=== PATIENT | male | born 1945 | race Caucasian/White ===

== ENCOUNTER 2020-09-17 13:04 | Emergency (ER) | payer MEDICARE, SELFPAY ==
--- NOTE | ~2020-09-17 | XR_ITS ---
EXAMINATION: XR LUMBOSACRAL SPINE CLINICAL INFORMATION: Severe left low back pain. History of multiple surgeries. COMPARISON: MRI of September 20, 2016 TECHNIQUE: Three views of the lumbosacral spine. FINDINGS: There are 5 nonrib-bearing lumbar vertebra. There is scoliosis of the lumbar spine convex left superiorly and convex right inferiorly. There is a stable superior endplate compression fracture of T12. No acute fractures identified. Patient is status post previous surgery at the L4-L5 and L5-S1 levels. There is loss of the L4-L5 and L5-S1 disc spaces with marginal spurring and sclerosis. There is some facet arthropathy on the right at the L5-S1 level. Sacroiliac joints appear unremarkable. There appear to be left-sided hemilaminectomies at L4 and L5. There are prominent vascular calcifications seen. No significant spondylolisthesis. XR/XR lumbar spine 2-3V IMPRESSION: Degenerative change of the lumbar spine most significant at the L4-L5 and L5-S1 levels as described. Stable chronic superior endplate compression fracture of T12.
[2020-09-17 13:17] VITALS: BP 132/58; PULSE 81; RESP 18; TEMP 36.7; O2SAT 98; BMI 22.6
--- NOTE | 2020-09-17 15:18 | ED.BACK ---
HPI - Back Pain/Injury General Chief Complaint: Back Pain/Injury Stated Complaint: Back pain Time Seen by Provider: 09/17/20 14:25 Source: patient Mode of arrival: ambulatory Limitations: no limitations History of Present Illness HPI Narrative: 75 y/o male with history of chronic low back pain s/p multiple back surgeries in the past presents to the ED with 1 week of worsening left sided low back pain. He denies trauma or injury. Today when he was getting out of the car his left low back locked up and tightened and he was unable to stand completely up. He took Flexeril and Aleve which usually help his back pain but did not help today. He denies urinary symptoms. He denies numbness, tingling, weakness. No incontinence. MD elicited complaint: back pain and back injury Pertinent past history: prior back pain Onset (ago): week(s) (1) Related Data Previous Rx's Medication Instructions Recorded cyclobenzaprine 10 mg PO TID PRN #10 tab 09/17/20 hydromorphone [Dilaudid] 1 mg PO Q6H PRN #5 tab 09/17/20 ibuprofen 600 mg PO Q8H PRN #20 tab 09/17/20 lidocaine [Lidoderm] 1 patch TOPICAL DAILY #15 ea 09/17/20 ondansetron 4 mg PO Q8H PRN #10 tab 09/17/20 Allergies Allergy/AdvReac Type Severity Reaction Status Date / Time acetaminophen [Percocet] AdvReac Intermediate Vomiting Verified 09/17/20 13:29 codeine AdvReac Intermediate Vomiting Verified 09/17/20 13:29 fentanyl [FENTANYL] AdvReac Intermediate Vomiting Verified 09/17/20 13:29 hydrocodone [Vicodin] AdvReac Intermediate Vomiting Verified 09/17/20 13:29 meperidine [Demerol] AdvReac Intermediate Vomiting Verified 09/17/20 13:29 Opioids-Meperidine and AdvReac Intermediate VOMITING Verified 09/17/20 13:29 Related [OPIOIDS-MEPERIDINE & RELATED] oxycodone AdvReac Intermediate Vomiting Verified 09/17/20 13:29 propoxyphene [From DARVON] AdvReac Intermediate NAUSEA & Verified 09/17/20 13:29 VOMITING tramadol [TRAMADOL] AdvReac Intermediate NAUSEA & Verified 09/17/20 13:29 VOMITING Darvon Allergy Intermediate Vomiting Uncoded 09/17/20 13:29 Darvocet-N 50 AdvReac Intermediate Vomiting Uncoded 09/17/20 13:29 Review of Systems Review of Systems: Constitutional: No Fever, No Chills Cardiovascular: No Chest Pain, No SOB Respiratory: No Cough, No Sputum Gastrointestinal: No Nausea, No Vomiting, No Diarrhea, No abdominal Pain Genitourinary: No Dysuria, No Urinary Frequency, No Hematuria Musculoskeletal: + joint pain, + Myalgias Skin: No Skin Lesions, No rash Neuro: No Weakness, No Numbness PMFSH Past Medical History Medical History Cataract Chronic back pain Deviated septum Diabetes High blood pressure Kidney stones Vitreomacular adhesion of left eye Surgical History (Updated 09/17/20 @ 13:24 by Maria A Mojica RN) H/O rotator cuff surgery Hx of vitrectomy Previous back surgery S/P hernia surgery Social History Social History Advance Directives: No Advance Directives Information Provided: No Physical Exam Vital Signs: Vital Signs: Last Vital Signs Temp 98.1 F 09/17/20 13:17 Pulse 59 09/17/20 16:53 Resp 16 09/17/20 16:53 BP 116/63 09/17/20 16:53 Pulse Ox 97 09/17/20 16:53 Body Mass Index 22.6 Appearance: Alert. Oriented X3. No acute distress. Appears younger than stated age. HEENT: normal inspection CVS: Normal heart rate and rhythm. Pulses normal. Respiratory: No respiratory distress. Skin: Skin warm and dry. Normal skin color. Normal skin turgor. No rashes. Back: normal inspection, tenderness to lower lumbar area on the left and SI joint. No spinal tenderness. Limited flexion due to pain Extremities: atraumatic, no edema. Neuro: Oriented X 3. No motor deficit. No sensory deficit. Ambulates with steady gait. Slow to go from laying to sitting to standing. Course Course Course Narrative: 75 y/o male presenting with acute on chronic low back pain. No definite trauma but occurred when getting out of car today. Consistent with muscualr pain or strain. No red flag symptoms of LBP. Possible slipped disc but no neurological symptoms at this time to warrant emergent MRI/CT scan. Will get XR, medicate and reassess. Multiple allergies to opiates in the past - he has tolerated low dose PO dilaudid with antiemetic in the past. Reevaluation(s) Reevaluation #1: XR showing no acute injuries - degenerative changes and old compression fracture. Results discussed as well as management. He has an appointment with his PCP in 2 weeks. Will give short course of PO dilaudid, muscle relaxer and NSAID. He agrees to come back to the ER if no improvement in pain or if new concerning symptoms develop. Stable for d/c. MDM - Back Pain/Injury Differential Diagnosis Differential diagnosis: Likely lumbar radiculopathy, sciatica, strain of lumbar region, renal colic, pyelonephritis and thoracic back pain Lab Data Labs: Lab Results 09/17/20 Range/Units 15:32 Urine Color YELLOW Urine Appearance CLEAR Urine pH 6.0 (5.0-8.0) Ur Specific [place] 1.025 (1.005-1.025) Urine Protein NEG (NEG-TRACE) MG/DL Urine Glucose (UA) 250 H (NEG) MG/DL Urine Ketones NEG (NEG) MG/DL Urine Blood NEG (NEG) Urine Nitrite NEG (NEG) Ur Leukocyte Esterase NEG (NEG) Critical Care Time Critical Care Time Critical Care Time: No Discharge Plan Discharge Clinical Impression: Strain of lumbar region Qualifiers: Encounter type: initial encounter Qualified Code(s): S39.012A - Strain of muscle, fascia and tendon of lower back, initial encounter Patient Disposition: Home, Self-Care Instructions: Low Back Strain (ED), Lower Back Exercises (ED) Additional Instructions: Your x-ray today degenerative changes in your spine, no acute injuries. No bending, lifting or twisting. Use ice several times per day for 20 minutes at a time for the next 48 hours and then change to heat. Do your best to not stay in 1 position for too long. Take medications as prescribed to help with pain and discomfort. Do not drive after taking Dilaudid or Flexeril, they can make you sleepy. Follow up with your Primary Care Doctor this week. If your pain worsens, if you develop new numbness, tingling, weakness, loss of function or incontinence call 911 or come back to the ER right away for evaluation. Prescriptions: New ondansetron 4 mg tablet,disintegrating 4 mg PO Q8H PRN (Reason: nausea and vomiting) Qty: 10 RF: 0 cyclobenzaprine 10 mg tablet 10 mg PO TID PRN (Reason: muscle spasm) Qty: 10 RF: 0 ibuprofen 600 mg tablet 600 mg PO Q8H PRN (Reason: pain) Qty: 20 RF: 0 lidocaine [Lidoderm] 5 % adhesive patch,medicated 1 patch topical DAILY Qty: 15 RF: 0 hydromorphone [Dilaudid] 2 mg tablet 1 mg PO Q6H PRN (Reason: pain) Qty: 5 RF: 0 Interventions: ED Discharge Assessment Last Done: 09/17/20 19:09 Discharge Date/Time: 09/17/20 19:12
[2020-09-17 16:02] LABS: Glucose Urine UA 250 MG/DL (NEG); Leukocyte Esterase Urine NEG (NEG); Nitrite Urine NEG (NEG); Specific Gravity - Urine 1.025 (1.005-1.025); Urine Blood NEG (NEG); Urine Ketones NEG (NEG); Urine Protein NEG (NEG-TRACE)
[2020-09-17] MEDS: Ketorolac Tromethamine 30 MG/ML VIAL IM (16:03)
[2020-09-17] MEDS: Lidocaine 4 % Patch ADH..PATCH 2 PATCH TRANSDERMA (16:03)
[2020-09-17 16:04] LABS: Appearance Urine CLEAR; Color Urine YELLOW
[2020-09-17] MEDS: TiZANidine HCL 4 MG TABLET 2 MG PO (16:04)
[2020-09-17 16:42] VITALS: RESP 16
[2020-09-17] MEDS: HYDROmorphone HCl 2 MG TABLET 1 MG PO (16:51)
[2020-09-17 16:53] VITALS: BP 116/63; PULSE 59; RESP 16; O2SAT 97
== END 2020-09-17 19:12 | disposition home or self-care (01) ==
PROVIDERS: Physician Assistant; Emergency Provider Emergency Medicine; PCP Internal Medicine
DX: S39.012A Strain of muscle, fascia and tendon of lower back, initial encounter (principal); X50.1XXA Overexertion from prolonged static or awkward postures, initial encounter; G89.29 Other chronic pain; E11.9 Type 2 diabetes mellitus without complications; Y93.89 Activity, other specified; Y92.810 Car as the place of occurrence of the external cause; Y99.8 Other external cause status; Z87.442 Personal history of urinary calculi
CPT/HCPCS: 72100; 81003; 96372; 99284; J1885

== ENCOUNTER 2020-09-18 23:27 | Inpatient (IN) | payer MEDICARE, SELFPAY ==
--- NOTE | ~2020-09-18 | CT_ITS ---
EXAMINATION: CT ABDOMEN AND PELVIS WITHOUT CONTRAST CLINICAL INFORMATION: Left flank pain. Left lower quadrant pain. COMPARISON: 08/20/2018 TECHNIQUE: Multidetector volumetric imaging was performed from the superior aspect of the liver through the pubic symphysis. Sagittal and coronal reformatted images were obtained on the technologist's workstation. This CT examination was performed using dose optimization techniques as appropriate, variously including the following: *Automated exposure control *Adjustment of mA and/or kV according to patient size (this includes techniques or standardized protocols for targeted exams where dose is matched to indication/reason for exam; i.e. extremities or head) *Use of iterative reconstruction technique DLP: 527 mGy-cm FINDINGS: LUNG BASES: Right basilar atelectasis/scarring. The visualized cardiac structures show coronary artery calcification. LIVER, GALLBLADDER, AND BILIARY TREE: The liver is normal in size, shape, and attenuation. 1.7 cm cyst at the dome of the right lobe of the liver. No biliary ductal dilatation is present. The gallbladder is unremarkable with no evidence of radiopaque gallstones, gallbladder wall thickening, or obvious pericholecystic inflammatory changes. PANCREAS: Mild atrophy of the pancreatic parenchyma. SPLEEN: Unremarkable. ADRENAL GLANDS: Unremarkable. KIDNEYS AND URETERS: The kidneys are normal in size, shape, and attenuation. No hydronephrosis, hydroureter, or calculi seen. No perinephric stranding. BLADDER: Unremarkable. GASTROINTESTINAL TRACT: The stomach is unremarkable. Normal caliber small bowel. No obstruction. There is wall thickening involving the descending colon and sigmoid colon with adjacent inflammation, consistent with colitis. Diffuse diverticulosis. No diverticulitis. No free air. ABDOMINAL WALL: No significant hernia is appreciated. LYMPH NODES: Normal. VASCULAR: Normal caliber aorta with moderate atherosclerotic calcification. PELVIC VISCERA: Enlarged prostate measuring 5.6 cm transverse. OSSEOUS STRUCTURES: No acute or suspicious osseous abnormality. Degenerative changes throughout the spine. Scoliotic curvature. CT/CT abdomen pelvis wo con IMPRESSION: Colitis of the left hemicolon. This could be infectious, inflammatory, or ischemic. Prostatomegaly.
--- NOTE | ~2020-09-18 | XR_ITS ---
EXAMINATION: XR CHEST CLINICAL INFORMATION: Cough COMPARISON: 10/20/2018 TECHNIQUE: Frontal view of the chest was obtained. FINDINGS: Chronic elevation of the right hemidiaphragm. Gas-filled stomach under the left hemidiaphragm. Right humeral head surgical anchors. Tracheal opacities at the left base. No pleural effusion or pneumothorax. The cardiomediastinal silhouette is unchanged, with a calcified aorta. Scoliotic curvature of the spine with degenerative changes. XR/XR chest 1V IMPRESSION: Streaky left basilar opacities favor atelectasis.
[2020-09-18 23:36] VITALS: BP 114/80; BP 140/70; PULSE 117; PULSE 83; RESP 16; TEMP 37; O2SAT 97; O2SAT 98; BMI 22.6
--- NOTE | 2020-09-18 23:44 | ECG_ITS ---
Test Reason : NAUSEA Blood Pressure : / mmHG Vent. Rate : 081 BPM Atrial Rate : 081 BPM P-R Int : 182 ms QRS Dur : 094 ms QT Int : 368 ms P-R-T Axes : 069 -82 070 degrees QTc Int : 427 ms Normal sinus rhythm Left axis deviation Pulmonary disease pattern Incomplete right bundle branch block Abnormal ECG When compared with ECG of 20-OCT-2018 07:58, Premature atrial complexes are no longer Present Referred By: Tova Villela Electronically Signed By:Mariano Lucero
--- NOTE | 2020-09-19 00:10 | ED.GENADULT ---
HPI - General Adult General Chief complaint: General Medical Stated complaint: weakness Time Seen by Provider: 09/18/20 23:44 History of Present Illness HPI narrative: This is a 75-year-old male with history of diabetes who is brought in by ambulance for worsening weakness and left flank pain with associated chills that worsened after being evaluated on 09/17 for strain of lumbar region. Patient states that that time he was started on Dilaudid which initially helped, but now he has developed nausea, vomiting, diarrhea. Although he denies any urinary symptoms and when question regarding his prior kidney stones appears to be uncertain that this is what is causing his recurrent symptoms at this time. Patient currently complaining of polydipsia as well as polyuria. Related Data Previous Rx's Medication Instructions Recorded cyclobenzaprine 10 mg PO TID PRN #10 tab 09/17/20 hydromorphone [Dilaudid] 1 mg PO Q6H PRN #5 tab 09/17/20 ibuprofen 600 mg PO Q8H PRN #20 tab 09/17/20 lidocaine [Lidoderm] 1 patch TOPICAL DAILY #15 ea 09/17/20 ondansetron 4 mg PO Q8H PRN #10 tab 09/17/20 Allergies Allergy/AdvReac Type Severity Reaction Status Date / Time acetaminophen [Percocet] AdvReac Intermediate Vomiting Verified 09/17/20 13:29 codeine AdvReac Intermediate Vomiting Verified 09/17/20 13:29 fentanyl [FENTANYL] AdvReac Intermediate Vomiting Verified 09/17/20 13:29 hydrocodone [Vicodin] AdvReac Intermediate Vomiting Verified 09/17/20 13:29 meperidine [Demerol] AdvReac Intermediate Vomiting Verified 09/17/20 13:29 Opioids-Meperidine and AdvReac Intermediate VOMITING Verified 09/17/20 13:29 Related [OPIOIDS-MEPERIDINE & RELATED] oxycodone AdvReac Intermediate Vomiting Verified 09/17/20 13:29 propoxyphene [From DARVON] AdvReac Intermediate NAUSEA & Verified 09/17/20 13:29 VOMITING tramadol [TRAMADOL] AdvReac Intermediate NAUSEA & Verified 09/17/20 13:29 VOMITING Darvon Allergy Intermediate Vomiting Uncoded 09/17/20 13:29 Darvocet-N 50 AdvReac Intermediate Vomiting Uncoded 04/21/21 13:29 Review of Systems Review of Systems: Pertinent positives and negatives as stated in HPI 10 point review of systems is otherwise negative. [facility] Past Medical History Source: nursing notes reviewed Medical History Cataract Chronic back pain Deviated septum Diabetes High blood pressure Kidney stones Vitreomacular adhesion of left eye Surgical History H/O rotator cuff surgery Hx of vitrectomy Previous back surgery S/P hernia surgery Social History Social History Advance Directives: No Physical Exam Vital Signs: Vital Signs: Last Vital Signs Temp 98.2 F 09/19/20 04:49 Pulse 89 09/19/20 04:49 Resp 15 09/19/20 04:49 BP 110/52 L 09/19/20 04:49 Pulse Ox 98 09/19/20 04:49 Body Mass Index 22.6 VITAL SIGNS: Reviewed. GENERAL: Well developed, well nourished, in no acute distress. HEAD: Normocephalic/atraumatic, EYES: PERRLA, EOMI OROPHARYNX: no oral lesions noted, posterior pharynx clear NECK: Supple, no adenopathy LUNGS: Normal breath sounds. No adventitious sounds or accessory muscle use. SpO2<98> CARDIOVASCULAR: Regular rate and rhythm without noted murmurs ABDOMEN: Soft, significant tenderness in the left lower quadrant, non-distended with bowel sounds, symmetric femoral pulses palpated, no pulsatile abdominal mass noted SKIN: Inspection of the skin reveals no rashes NEUROLOGIC: Alert and oriented x 4. Strength and sensation decreased secondary to known diabetic neuropathy but otherwise grossly intact x 4. Course Course Course Narrative: 75-year-old male with history and clinical presentation suggestive of renal colic, diverticulitis, possible DKA and doubt pneumonia or aortic pathology. On review of all investigations there are no acute findings other than a new FRANCOIS that is reflective of patient's nausea, vomiting, diarrhea and no evidence of DKA or HHS. CT scan is consistent with colitis and presumed to be infectious as there is no evidence to support ischemic at this point. Patient has had resolution of nausea and vomiting and has been able to tolerate oral intake. In addition, patient has had no further episodes of diarrhea. Signed out to Dr Ventura (f/u BMP, stool sample). Medical Decision Making Lab Data Result diagrams: 09/19/20 00:42 09/19/20 00:42 Labs: Lab Results 09/19/20 09/19/20 09/19/20 Range/Units 00:42 00:42 00:42 WBC 10.6 (4.8-10.8) X10*3/uL RBC 4.22 L (4.60-5.80) X10*6/uL Hgb 13.4 L (14.0-18.0) g/dl Hct 40.1 L (42-52) % MCV 95.0 (80-98) fL MCH 31.8 (27.0-33.0) pg MCHC 33.4 (31.0-36.0) g/dl RDW 13.0 (11.0-16.0) % Plt Count 215 (160-400) X10*3/uL MPV 11.3 (9.4-12.4) fL Immature Gran % (Auto) 0.2 (0.0-0.4) % Neut % (Auto) 86.1 H (45-73) % Lymph % (Auto) 7.7 L (20-40) % Nash % (Auto) 5.7 (2-11) % Eos % (Auto) 0.2 (0-4) % Baso % (Auto) 0.1 (0-2) % Lymph # (Auto) 0.8 L (1.2-4.9) X10*3/uL Nash # (Auto) 0.6 (0.1-1.2) X10*3/uL Eos # (Auto) 0.0 (0.0-0.4) X10*3/uL Baso # (Auto) 0.0 (0.0-0.2) X10*3/uL Abs Immat Gran (auto) 0.02 (0.00-0.03) X10*3/uL Absolute Neuts (auto) 9.1 H (2.0-8.3) X10*3/uL Absolute Nucleated RBC 0.000 (0.0-0.012) X10*3/uL Nucleated RBC % (auto) 0.0 (0.0-0.2) /100WBC PT 11.7 (10.8-13.0) SEC INR 1.0 (0.9-1.1) Sodium 140 (135-145) mmol/L Potassium 4.6 (3.3-5.1) mmol/L Chloride 102 (96-108) mmol/L Carbon Dioxide 22 (22-29) mmol/L Anion Gap 21 H (12-20) BUN 28 H (9-16) mg/dL Creatinine 1.75 H (0.5-1.4) mg/dL Estim Creat Clear Calc 36.3 Estimated GFR 38 POC Glucose (60-115) mg/dL Random Glucose 242 H (60-115) mg/dL Calcium 10.1 (8.4-10.2) mg/dL Total Bilirubin 0.8 (0.0-1.0) mg/dL AST 24 (5-37) U/L ALT 24 (0-40) U/L Alkaline Phosphatase 73 (39-117) U/L Total Protein 6.8 (6.5-8.0) g/dL Albumin 4.3 (3.5-5.0) g/dL Urine Color Urine Appearance Urine pH (5.0-8.0) Ur Specific [place] (1.005-1.025) Urine Protein (NEG-TRACE) MG/DL Urine Glucose (UA) (NEG) MG/DL Urine Ketones (NEG) MG/DL Urine Blood (NEG) Urine Nitrite (NEG) Ur Leukocyte Esterase (NEG) Acetone, Qual (Negative) 09/19/20 09/19/20 09/19/20 Range/Units 00:42 01:06 04:49 WBC (4.8-10.8) X10*3/uL RBC (4.60-5.80) X10*6/uL Hgb (14.0-18.0) g/dl Hct (42-52) % MCV (80-98) fL MCH (27.0-33.0) pg MCHC (31.0-36.0) g/dl RDW (11.0-16.0) % Plt Count (160-400) X10*3/uL MPV (9.4-12.4) fL Immature Gran % (Auto) (0.0-0.4) % Neut % (Auto) (45-73) % Lymph % (Auto) (20-40) % Nash % (Auto) (2-11) % Eos % (Auto) (0-4) % Baso % (Auto) (0-2) % Lymph # (Auto) (1.2-4.9) X10*3/uL Nash # (Auto) (0.1-1.2) X10*3/uL Eos # (Auto) (0.0-0.4) X10*3/uL Baso # (Auto) (0.0-0.2) X10*3/uL Abs Immat Gran (auto) (0.00-0.03) X10*3/uL Absolute Neuts (auto) (2.0-8.3) X10*3/uL Absolute Nucleated RBC (0.0-0.012) X10*3/uL Nucleated RBC % (auto) (0.0-0.2) /100WBC PT (10.8-13.0) SEC INR (0.9-1.1) Sodium (135-145) mmol/L Potassium (3.3-5.1) mmol/L Chloride (96-108) mmol/L Carbon Dioxide (22-29) mmol/L Anion Gap (12-20) BUN (9-16) mg/dL Creatinine (0.5-1.4) mg/dL Estim Creat Clear Calc Estimated GFR POC Glucose 234 H (60-115) mg/dL Random Glucose (60-115) mg/dL Calcium (8.4-10.2) mg/dL Total Bilirubin (0.0-1.0) mg/dL AST (5-37) U/L ALT (0-40) U/L Alkaline Phosphatase (39-117) U/L Total Protein (6.5-8.0) g/dL Albumin (3.5-5.0) g/dL Urine Color DARK YELLOW Urine Appearance CLEAR Urine pH 5.0 (5.0-8.0) Ur Specific [place] 1.025 (1.005-1.025) Urine Protein NEG (NEG-TRACE) MG/DL Urine Glucose (UA) 100 H (NEG) MG/DL Urine Ketones NEG (NEG) MG/DL Urine Blood NEG (NEG) Urine Nitrite NEG (NEG) Ur Leukocyte Esterase NEG (NEG) Acetone, Qual Negative (Negative) ECG Data Attestation: I personally reviewed and interpreted this ECG as follows: Prior ECG tracings: available for review (10/20/2018 no acute changes on comparison) Interpretation: Normal sinus rhythm, HR-81, incomplete right bundle branch block, no acute evidence ischemia, AK/QRS/QTC are within normal limits Discharge Plan Discharge Clinical Impression: Colitis Patient Disposition: Home, Self-Care Instructions: Colitis (ED) Additional Instructions: 1. Continue to drink plenty of water. 2. Prescriptions: No Action ondansetron 4 mg tablet,disintegrating 4 mg PO Q8H PRN (Reason: nausea and vomiting) Qty: 10 RF: 0 cyclobenzaprine 10 mg tablet 10 mg PO TID PRN (Reason: muscle spasm) Qty: 10 RF: 0 ibuprofen 600 mg tablet 600 mg PO Q8H PRN (Reason: pain) Qty: 20 RF: 0 lidocaine [Lidoderm] 5 % adhesive patch,medicated 1 patch topical DAILY Qty: 15 RF: 0 hydromorphone [Dilaudid] 2 mg tablet 1 mg PO Q6H PRN (Reason: pain) Qty: 5 RF: 0
--- NOTE | 2020-09-19 00:33 | PC.NURSE ---
IV inserted into right AC.
[2020-09-19] MEDS: ondansetron HCL 4 MG/2 ML VIAL IVPUSH ×2 (00:35→05:05)
[2020-09-19 00:47] LABS: MANUAL DIFF FLAG NO
[2020-09-19 01:01] LABS: Basophils Percent Auto 0.1 % (0-2); Eosinophils Percent Auto 0.2 % (0-4); Hematocrit 40.1 % (42-52); Hemoglobin 13.4 g/dl (14.0-18.0); Imm Gran Abs Auto 0.02 X10*3/uL (0.00-0.03); Imm Gran Pct Auto 0.2 % (0.0-0.4); Lymphocytes Absolute Auto 0.8 X10*3/uL (1.2-4.9); Lymphocytes Percent Auto 7.7 % (20-40); Mean Corpuscular HGB Conc 33.4 g/dl (31.0-36.0); Mean Corpuscular Hemoglobin 31.8 pg (27.0-33.0); Mean Platelet Volume 11.3 fL (9.4-12.4); Monocytes Absolute Auto 0.6 X10*3/uL (0.1-1.2); Monocytes Percent Auto 5.7 % (2-11); Neutrophils Absolute Auto 9.1 X10*3/uL (2.0-8.3); Neutrophils Percent Auto 86.1 % (45-73); Platelet Count 215 X10*3/uL (160-400); Red Blood Count 4.22 X10*6/uL (4.60-5.80); White Blood Count 10.6 X10*3/uL (4.8-10.8)
[2020-09-19 01:08] LABS: Prothrombin Time 11.7 SEC (10.8-13.0)
[2020-09-19 01:10] LABS: Glucose, Whole Blood 234 mg/dL (60-115)
[2020-09-19 01:15] LABS: Acetone, serum QL Negative (Negative)
--- NOTE | 2020-09-19 01:15 | PC.NURSE ---
PT had episode of explosive diarrhea in the bathroom. Provider is order stool sample culture to check for c. diff.
[2020-09-19 01:22] LABS: Alanine Aminotransferase 24 U/L (0-40); Alkaline Phosphatase 73 U/L (39-117); Anion Gap 21 (12-20); Aspartate Amino Transferase 24 U/L (5-37); Bilirubin Total 0.8 mg/dL (0.0-1.0); Blood Urea Nitrogen 28 mg/dL (9-16); Calcium 10.1 mg/dL (8.4-10.2); Carbon Dioxide 22 mmol/L (22-29); Chloride 102 mmol/L (96-108); Creatinine Clr Calc Pharmacy 36.3; Estimated Glomerular Filt Rate 38; Glucose Random 242 mg/dL (60-115); Potassium 4.6 mmol/L (3.3-5.1); Sodium 140 mmol/L (135-145); Total Protein 6.8 g/dL (6.5-8.0)
[2020-09-19 01:27] LABS: Albumin Level 4.3 g/dL (3.5-5.0)
[2020-09-19] MEDS: 0.9 % Sodium Chloride 1,000 ML 999 ML IV (02:01)
[2020-09-19 04:49] VITALS: BP 110/52; PULSE 89; RESP 15; TEMP 36.8; O2SAT 98
[2020-09-19 05:04] LABS: Glucose Urine UA 100 MG/DL (NEG); Leukocyte Esterase Urine NEG (NEG); Nitrite Urine NEG (NEG); Specific Gravity - Urine 1.025 (1.005-1.025); Urine Blood NEG (NEG); Urine Ketones NEG (NEG); Urine Protein NEG (NEG-TRACE)
[2020-09-19 05:07] LABS: Appearance Urine CLEAR; Color Urine DARK YELLOW
[2020-09-19 08:00] VITALS: PULSE 78; RESP 16; O2SAT 97
[2020-09-19 08:58] LABS: Lactic Acid 2.6 mmol/L (0.5-2.0)
[2020-09-19 09:11] LABS: Alanine Aminotransferase 29 U/L (0-40); Alkaline Phosphatase 64 U/L (39-117); Anion Gap 15 (12-20); Aspartate Amino Transferase 28 U/L (5-37); Bilirubin Total 0.6 mg/dL (0.0-1.0); Blood Urea Nitrogen 30 mg/dL (9-16); Calcium 9.6 mg/dL (8.4-10.2); Carbon Dioxide 23 mmol/L (22-29); Chloride 105 mmol/L (96-108); Estimated Glomerular Filt Rate 43; Glucose Random 231 mg/dL (60-115); Potassium 4.7 mmol/L (3.3-5.1); Sodium 138 mmol/L (135-145); Total Protein 6.2 g/dL (6.5-8.0)
[2020-09-19 10:31] LABS: Reflex Lactate? Lactic Acid Added
[2020-09-19] MEDS: 0.9 % Sodium Chloride 500 ML IV (10:45)
[2020-09-19] MEDS: levoFLOXacin/D5W 500 MG/100 ML PIGGYBACK 100 MG IV (10:48)
[2020-09-19 11:21] VITALS: BP 118/59; PULSE 83; RESP 16; TEMP 36.9; O2SAT 98
[2020-09-19 11:42] LABS: CDIFF Ag Negative (Negative); CDIFF Internal ctrl Dots and bkg OK (V); CDiff Toxin Negative (Negative)
[2020-09-19] MEDS: metroNIDAZOLE/NS 500 MG/100 ML PIGGYBACK 100 MG IV ×2 (11:45→17:55)
[2020-09-19 11:59] LABS: ~Lactic Acid-LAB USE ONLY 1.5 mmol/L (0.5-2.0)
[2020-09-19 12:59] LABS: Glucose, Whole Blood 121 mg/dL (60-115)
--- NOTE | 2020-09-19 15:49 | PM.IMHP ---
History of Present Illness Date of Service: 09/19/20 Chief Complaint: left sided abdominal pain, nausea, diarrhea This is a 75-year-old male with a past medical history as outlined below who presents to the hospital complaints of nausea and left-sided abdominal pain of one-day duration. Patient reports that over the last several days he has had some diarrhea and back pain. He reports that he was seen for back pain in the emergency room 2 days ago and was prescribed some muscle relaxers and narcotics. He reports that he has some intolerance to narcotics and started having subsequent vomiting with associated left-sided pain. He reports that his diarrhea has been going on for 3-4 days, nonbloody and he has been going about 4 to 5 times a day. Reports that the pain started several days after the diarrhea. He denies any fevers but does endorse some chills at home yesterday. Denies any recent antibiotic use. Denies eating outside the house. Review of Systems Review of Systems: General - denies fevers, +chills, denies weakness or fatigue HEENT -denies blurred vision, denies headache, denies sore throat Cardiovascular - denies chest pain or palpitations, denies edema Respiratory - denies shortness of breath, coughing, wheezing Gastrointestinal - left sided pain with nausea/vomiting - denies flank pain, denies dysuria, denies frequency or urgency Musculoskeletal - denies back pain, denies hip pain, denies knee pain, denies shoulder pain Neurological - denies any focal weakness or numbness Skin, denies any bruising or redness Psychiatric - denies any suicidal ideation, hallucinations, homicidal ideation Endocrinology - denies intolerance to hot / cold temperatures [facility] Medical History Cataract Chronic back pain Deviated septum Diabetes High blood pressure Kidney stones Vitreomacular adhesion of left eye Surgical History H/O rotator cuff surgery Hx of vitrectomy Previous back surgery S/P hernia surgery Social History Alcohol intake: unknown Smoking Status: Unknown if ever smoked Use of substances other than those prescribed or required for medical reasons: Unknown Advance Directives: No Meds Allergies Allergy/AdvReac Type Severity Reaction Status Date / Time acetaminophen [Percocet] AdvReac Intermediate Vomiting Verified 09/17/20 13:29 codeine AdvReac Intermediate Vomiting Verified 09/17/20 13:29 fentanyl [FENTANYL] AdvReac Intermediate Vomiting Verified 09/17/20 13:29 hydrocodone [Vicodin] AdvReac Intermediate Vomiting Verified 09/17/20 13:29 meperidine [Demerol] AdvReac Intermediate Vomiting Verified 09/17/20 13:29 Opioids-Meperidine and AdvReac Intermediate VOMITING Verified 09/17/20 13:29 Related [OPIOIDS-MEPERIDINE & RELATED] oxycodone AdvReac Intermediate Vomiting Verified 09/17/20 13:29 propoxyphene [From DARVON] AdvReac Intermediate NAUSEA & Verified 09/17/20 13:29 VOMITING tramadol [TRAMADOL] AdvReac Intermediate NAUSEA & Verified 09/17/20 13:29 VOMITING Darvon Allergy Intermediate Vomiting Uncoded 09/17/20 13:29 Darvocet-N 50 AdvReac Intermediate Vomiting Uncoded 09/17/20 13:29 Active Medications: Current Medications Generic Name Dose Route Start Last Admin Trade Name Freq PRN Reason Stop Dose Admin Pharmacy Consult 1 each 09/19/20 09:04 Consult Rx Perform Med Rec MISCELLANE ONCE PRN Consult order Home Medications Medication Instructions Recorded Confirmed Last Taken Type amlodipine 1 tab PO DAILY 09/19/20 09/19/20 09/18/20 History aspirin 81 mg PO DAILY 09/19/20 09/19/20 09/18/20 History lisinopril 1 tab PO DAILY 09/19/20 09/19/20 09/18/20 History metformin 1 tab PO BEDTIME 09/19/20 09/19/20 09/18/20 History resisehv-dds-NO-lycopen-lutein 1 tab PO DAILY 09/19/20 09/19/20 09/18/20 History [Centrum Silver Men] rosuvastatin 1 tab PO BEDTIME 09/19/20 09/19/20 09/18/20 History Physical Exam Vital Signs and Narrative: Vital Signs: Last Vital Signs Temp 98.5 F 09/19/20 11:21 Pulse 83 09/19/20 11:21 Resp 16 09/19/20 11:21 BP 118/59 L 09/19/20 11:21 Pulse Ox 98 09/19/20 11:21 Body Mass Index 22.6 Const: Other: Constitutional - Awake and Alert, No apparent distress Eyes - PERRLA, EOMI Cardiovascular - S1S2, RRR, No edema Respiratory - Normal lung expansion, Normal respiratory effort, No respiratory distress, CTA bilaterally Gastrointestinal - slightly distended L > R; tender on the left side without rebound or guarding - No CVA tenderness Extremities - no calf tenderness bilaterally, no swelling Musculoskeletal - Normal inspection, normal ROM Skin - Warm/Dry Neurological - Alert & oriented x3, No focal deficit Psychological - Appropriate affect Results Labs CBC and Chem 7: 09/19/20 00:42 09/19/20 08:26 Labs: Laboratory Results - last 24 hr 09/19/20 09/19/20 09/19/20 00:42 00:42 00:42 MCV 95.0 MCH 31.8 MCHC 33.4 RDW 13.0 Plt Count 215 MPV 11.3 Immature Gran % (Auto) 0.2 Neut % (Auto) 86.1 H Lymph % (Auto) 7.7 L [place] % (Auto) 5.7 Eos % (Auto) 0.2 Baso % (Auto) 0.1 Lymph # (Auto) 0.8 L [place] # (Auto) 0.6 Eos # (Auto) 0.0 Baso # (Auto) 0.0 Abs Immat Gran (auto) 0.02 Absolute Neuts (auto) 9.1 H Absolute Nucleated RBC 0.000 Nucleated RBC % (auto) 0.0 PT 11.7 INR 1.0 Anion Gap 21 H Estim Creat Clear Calc 36.3 Estimated GFR 38 POC Glucose Random Glucose 242 H Lactic Acid Lactic Acid Fup @ 2Hr Calcium 10.1 Total Bilirubin 0.8 AST 24 ALT 24 Alkaline Phosphatase 73 Total Protein 6.8 Albumin 4.3 Urine Color Urine Appearance Urine pH Ur Specific [place] Urine Protein Urine Glucose (UA) Urine Ketones Urine Blood Urine Nitrite Ur Leukocyte Esterase Acetone, Qual C. difficile Toxin A&B C. difficile Antigen C. difficile Interpret 09/19/20 09/19/20 09/19/20 00:42 01:06 04:49 MCV MCH MCHC RDW Plt Count MPV Immature Gran % (Auto) Neut % (Auto) Lymph % (Auto) [place] % (Auto) Eos % (Auto) Baso % (Auto) Lymph # (Auto) [place] # (Auto) Eos # (Auto) Baso # (Auto) Abs Immat Gran (auto) Absolute Neuts (auto) Absolute Nucleated RBC Nucleated RBC % (auto) PT INR Anion Gap Estim Creat Clear Calc Estimated GFR POC Glucose 234 H Random Glucose Lactic Acid Lactic Acid Fup @ 2Hr Calcium Total Bilirubin AST ALT Alkaline Phosphatase Total Protein Albumin Urine Color DARK YELLOW Urine Appearance CLEAR Urine pH 5.0 Ur Specific [place] 1.025 Urine Protein NEG Urine Glucose (UA) 100 H Urine Ketones NEG Urine Blood NEG Urine Nitrite NEG Ur Leukocyte Esterase NEG Acetone, Qual Negative C. difficile Toxin A&B C. difficile Antigen C. difficile Interpret 09/19/20 09/19/20 09/19/20 08:26 08:26 10:59 MCV MCH MCHC RDW Plt Count MPV Immature Gran % (Auto) Neut % (Auto) Lymph % (Auto) [place] % (Auto) Eos % (Auto) Baso % (Auto) Lymph # (Auto) [place] # (Auto) Eos # (Auto) Baso # (Auto) Abs Immat Gran (auto) Absolute Neuts (auto) Absolute Nucleated RBC Nucleated RBC % (auto) PT INR Anion Gap 15 Estim Creat Clear Calc 40.0 Estimated GFR 43 POC Glucose Random Glucose 231 H Lactic Acid 2.6 H* Lactic Acid Fup @ 2Hr Calcium 9.6 Total Bilirubin 0.6 AST 28 ALT 29 Alkaline Phosphatase 64 Total Protein 6.2 L Albumin 4.0 Urine Color Urine Appearance Urine pH Ur Specific [place] Urine Protein Urine Glucose (UA) Urine Ketones Urine Blood Urine Nitrite Ur Leukocyte Esterase Acetone, Qual C. difficile Toxin A&B Negative C. difficile Antigen Negative C. difficile Interpret SEE NOTE 09/19/20 09/19/20 11:26 12:51 MCV MCH MCHC RDW Plt Count MPV Immature Gran % (Auto) Neut % (Auto) Lymph % (Auto) [place] % (Auto) Eos % (Auto) Baso % (Auto) Lymph # (Auto) [place] # (Auto) Eos # (Auto) Baso # (Auto) Abs Immat Gran (auto) Absolute Neuts (auto) Absolute Nucleated RBC Nucleated RBC % (auto) PT INR Anion Gap Estim Creat Clear Calc Estimated GFR POC Glucose 121 H Random Glucose Lactic Acid Lactic Acid Fup @ 2Hr 1.5 Calcium Total Bilirubin AST ALT Alkaline Phosphatase Total Protein Albumin Urine Color Urine Appearance Urine pH Ur Specific [place] Urine Protein Urine Glucose (UA) Urine Ketones Urine Blood Urine Nitrite Ur Leukocyte Esterase Acetone, Qual C. difficile Toxin A&B C. difficile Antigen C. difficile Interpret Imaging Radiologist's Impressions: Impressions Chest X-Ray 09/18/20 23:45 IMPRESSION: Streaky left basilar opacities favor atelectasis. Abdomen/Pelvis CT 09/19/20 01:50 IMPRESSION: Colitis of the left hemicolon. This could be infectious, inflammatory, or ischemic. Prostatomegaly. Assessment and Plan (1) FRANCOIS (acute kidney injury): Status: Acute (2) Colitis: Status: Acute This is a 75 yo M who presents with L-sided abdominal pain with associated diarrhea and nausea. His CT scan shows left sided colitis -- ischemic vs inflammatory vs infectious 1. L-sided colitis ischemic vs inflammatory vs infectious check stool studies empirically cover for infection with rocephin/flagyl GI consult if symptoms not improved 2. FRANCOIS SCr -- baseline appears to be around 1.1 Was 1.75 in the ED, repeat has improved down to 1.59 with IVF hold lisinopril continue fluids 3. DM hold metformin use sliding scale 4. HTN norvasc hold lisinopril 5. LA improved with fluids Full Code DVT pptx, subcut. heparin
--- NOTE | 2020-09-19 17:15 | PC.NURSE ---
report given to benjie cruz
[2020-09-19] MEDS: Lactated Ringers 1,000 ML 100 ML IVCONT (17:55)
[2020-09-19] MEDS: 0.9 % Sodium Chloride Flush 3 ML SYRINGE IVFLUSH (17:55)
[2020-09-19 18:09] VITALS: BMI 22.2
[2020-09-19 18:14] VITALS: BP 142/61; PULSE 94; RESP 18; TEMP 36.1; O2SAT 97
[2020-09-19 18:40] LABS: OBS1 POSITIVE (NEGATIVE)
[2020-09-19 18:41] LABS: OBS Int Ctl Valid YES
[2020-09-19 20:41] LABS: Glucose, Whole Blood 163 mg/dL (60-115)
[2020-09-19] MEDS: Atorvastatin Calcium 80 MG TABLET PO (21:40)
[2020-09-19] MEDS: Insulin Lispro 100 UNIT/ML 3 ML VIAL SUBCUT (21:41)
[2020-09-19 23:20] VITALS: BP 123/62; PULSE 82; RESP 16; TEMP 36.3; O2SAT 98
[2020-09-20] VITALS (7 sets, daily range): BP systolic 107–151; BP diastolic 58–65; PULSE 77–83; RESP 15–19; TEMP 36.3–36.8; O2SAT 95–98
[2020-09-20] MEDS: metroNIDAZOLE/NS 500 MG/100 ML PIGGYBACK 100 MG IV ×3 (00:20→16:24)
[2020-09-20] MEDS: Lactated Ringers 1,000 ML 100 ML IVCONT (03:52)
[2020-09-20 06:27] LABS: MANUAL DIFF FLAG NO
[2020-09-20 06:55] LABS: Basophils Percent Auto 0.4 % (0-2); Eosinophils Absolute Auto 0.2 X10*3/uL (0.0-0.4); Eosinophils Percent Auto 2.1 % (0-4); Hematocrit 34.6 % (42-52); Hemoglobin 11.5 g/dl (14.0-18.0); Imm Gran Abs Auto 0.04 X10*3/uL (0.00-0.03); Imm Gran Pct Auto 0.5 % (0.0-0.4); Lymphocytes Absolute Auto 1.1 X10*3/uL (1.2-4.9); Lymphocytes Percent Auto 14.4 % (20-40); Mean Corpuscular HGB Conc 33.2 g/dl (31.0-36.0); Mean Corpuscular Hemoglobin 31.7 pg (27.0-33.0); Mean Corpuscular Volume 95.3 fL (80-98); Mean Platelet Volume 11.5 fL (9.4-12.4); Monocytes Absolute Auto 1.1 X10*3/uL (0.1-1.2); Monocytes Percent Auto 14.9 % (2-11); Neutrophils Absolute Auto 5.1 X10*3/uL (2.0-8.3); Neutrophils Percent Auto 67.7 % (45-73); Platelet Count 150 X10*3/uL (160-400); Red Blood Count 3.63 X10*6/uL (4.60-5.80); Red Cell Distribution Width 13.3 % (11.0-16.0); White Blood Count 7.5 X10*3/uL (4.8-10.8)
[2020-09-20 07:24] LABS: Anion Gap 12 (12-20); Blood Urea Nitrogen 18 mg/dL (9-16); Calcium 8.8 mg/dL (8.4-10.2); Carbon Dioxide 27 mmol/L (22-29); Chloride 105 mmol/L (96-108); Estimated Glomerular Filt Rate > 60; Glucose Random 140 mg/dL (60-115); Potassium 4.8 mmol/L (3.3-5.1); Sodium 139 mmol/L (135-145)
[2020-09-20 07:58] LABS: Glucose, Whole Blood 127 mg/dL (60-115)
[2020-09-20] MEDS: amLODIPine Besylate 5 MG TABLET PO (08:16)
[2020-09-20] MEDS: cefTRIAXone sodium 1 GM in 0.9 % Sodium Chloride 50 ML IV (08:16)
[2020-09-20] MEDS: Aspirin 81 MG TAB.CHEW PO (08:16)
[2020-09-20] MEDS: Loperamide HCl 2 MG CAPSULE PO (08:54)
[2020-09-20 11:57] LABS: Glucose, Whole Blood 133 mg/dL (60-115)
--- NOTE | 2020-09-20 12:49 | HO.PM.IMPN ---
Subjective Subjective Date of Service: 09/20/20 Interval History: the patient was seen and evaluated this morning Laying in bed, feels comfortable overall, complaining of ongoing diarrhea Feels better and tolerating clear liquids Denies any fever, chills or shortness of breath No reported other overnight events. Systemic review: No fever, chills or weakness No chest pain, palpitation No shortness of breath or coughing No abdominal pain, nausea or vomiting but reporting active diarrhea No urinary symptoms No any rash or wounds Physical Exam Vital Signs: Vital Signs: Last Vital Signs Temp 98.2 F 09/20/20 11:40 Pulse 77 09/20/20 11:40 Resp 19 09/20/20 11:40 BP 126/61 09/20/20 11:40 Pulse Ox 97 09/20/20 11:40 Body Mass Index 22.2 Const: Other: Constitutional : Alert, oriented, not in distress Neck : Normal inspection, Supple Cardiovascular : RRR, S1 S2, no lower extremity edema Respiratory : Good bilateral air entry, no crackles, wheezes or rhonchi Gastrointestinal: soft, lax, Normal bowel sounds, left lower quadrant mild tenderness with palpation Skin : Warm/Dry, No rash Neurological : Alert & oriented x3, No focal deficit Objective Data Current Medications Generic Name Dose Route Start Last Admin Trade Name Freq PRN Reason Stop Dose Admin Acetaminophen 650 mg 09/19/20 16:44 Acetaminophen 325 Mg Tablet PO Q6H PRN Pain, Mild (Pain Scale 1-3) Amlodipine Besylate 5 mg 09/20/20 09:00 09/20/20 08:16 Amlodipine Besylate 5 Mg Tablet PO 5 mg DAILY MONTEZ Administration Protocol Aspirin 81 mg 09/20/20 09:00 09/20/20 08:16 Aspirin 81 Mg Tab.Chew PO 81 mg DAILY MONTEZ Administration Atorvastatin Calcium 80 mg 09/19/20 21:00 09/19/20 21:40 Atorvastatin Calcium 80 Mg Tablet PO 80 mg BEDTIME MONTEZ Administration Lactated Ringer's 1,000 mls @ 100 mls/hr 09/19/20 16:44 09/20/20 03:52 Lr IVCONT 100 mls/hr .Q10H MONTEZ Administration Metronidazole 500 mg in 100 mls @ 100 mls/hr 09/19/20 17:00 09/20/20 10:08 Flagyl IV Infused Q8H [facility] Infusion Ceftriaxone Sodium 1 gm/ 50 mls @ 100 mls/hr 09/20/20 09:00 09/20/20 08:54 Sodium Chloride IV Infused Q24H [facility] Infusion Insulin Human Lispro 0 unit 09/19/20 21:00 09/20/20 11:46 Insulin Lispro 100 Unit/Ml 3 Ml Vial SUBCUT Not Given QIDACHS [facility] Protocol Loperamide HCl 2 mg 09/20/20 08:21 09/20/20 08:54 Loperamide Hcl 2 Mg Capsule PO 2 mg Q4H PRN Administration Diarrhea Multivitamins/Minerals 1 tab 09/20/20 09:00 09/20/20 08:16 Multivitamin With Minerals Tablet PO 1 tab DAILY [facility] Administration Pharmacy Consult 1 each 09/19/20 09:04 Consult Rx Perform Med Rec MISCELLANE ONCE PRN Consult order Sodium Chloride 3 ml 09/19/20 16:44 09/20/20 08:14 0.9 % Sodium Chloride Flush 3 Ml Syringe IVFLUSH Not Given QSHIFT [facility] Labs CBC & Chem 7: 09/20/20 06:17 09/20/20 06:17 Microbiology Microbiology Results: Microbiology 09/19/20 10:33 Blood - Venous Blood Culture - Preliminary No growth after 24 hours. 09/19/20 09:30 Blood - Venous Blood Culture - Preliminary No growth after 24 hours. 09/19/20 18:16 Stool Stool Culture - Preliminary Normal so far. Assessment and Plan (1) FRANCOIS (acute kidney injury): Status: Acute (2) Colitis: Status: Acute Assessment and Plan: This is a 75 yo M who presents with L-sided abdominal pain with associated diarrhea and nausea. His CT scan shows left sided colitis -- ischemic vs inflammatory vs infectious 1. L-sided colitis Positive occult blood Improving CT reported left-sided colitis with possible origin ischemic vs inflammatory vs infectious Negative for C diff Has positive occult blood with no bleeding or drop in his hemoglobin level Continue rocephin/flagyl GI consult if symptoms worsens Advanced diet to regular 2. FRANCOIS SCr improving back to baseline DC IV fluids hold lisinopril 3. DM hold metformin use sliding scale 4. HTN norvasc hold lisinopril 5. LA improved with fluids Full Code DVT pptx, subcut. heparin
--- NOTE | 2020-09-20 13:58 | MHC.CM.PN ---
IMM 09/20/20, EMR REVIEWED PT ADMITTED W/COLITIS, LACTIC ACIDOSIS AND FRANCOIS, CM MET W/PT WHO IS A&O X4, PT REPORTS HE LIVES ALONE, DENIES USE OF DME EXCEPT GLUCOM[employer]ER AND PT CHECKS HIS BS'S DAILY IN AM, PT TAKES METFORMIN DAILY HOWEVER HAS NO HX OF INSULIN USE EXCEPT INPT, NO HOME SERVICES, PT REPORTS HIS PCP IS UMAIR LEI AT [facility], PT REPORTS HIS DAUGHTER FAMILIA IS HIS HCP AND REPORTS HE WILL PROVIDE [facility] W/A COPY. DISCHARGE PLAN: HOME SELF-CARE, DAUGHTER TO TRANSPORT HCP: FAMILIA WARD [phone]
[2020-09-20 16:31] LABS: Glucose, Whole Blood 129 mg/dL (60-115)
[2020-09-20 20:35] LABS: Glucose, Whole Blood 174 mg/dL (60-115)
[2020-09-20] MEDS: Atorvastatin Calcium 80 MG TABLET PO (20:58)
[2020-09-20] MEDS: Insulin Lispro 100 UNIT/ML 3 ML VIAL SUBCUT (20:58)
[2020-09-21] VITALS (7 sets, daily range): BP systolic 92–137; BP diastolic 49–91; PULSE 67–84; RESP 14–16; TEMP 36.4–37.2; O2SAT 96–99
[2020-09-21] MEDS: metroNIDAZOLE/NS 500 MG/100 ML PIGGYBACK 100 MG IV ×3 (01:30→16:16)
[2020-09-21 06:57] LABS: Anion Gap 13 (12-20); Blood Urea Nitrogen 20 mg/dL (9-16); Calcium 8.9 mg/dL (8.4-10.2); Carbon Dioxide 26 mmol/L (22-29); Chloride 106 mmol/L (96-108); Estimated Glomerular Filt Rate > 60; Glucose Random 142 mg/dL (60-115); Potassium 4.5 mmol/L (3.3-5.1); Sodium 140 mmol/L (135-145)
[2020-09-21 07:36] LABS: Glucose, Whole Blood 135 mg/dL (60-115)
[2020-09-21] MEDS: Aspirin 81 MG TAB.CHEW PO (08:51)
[2020-09-21] MEDS: amLODIPine Besylate 5 MG TABLET PO (08:51)
[2020-09-21] MEDS: cefTRIAXone sodium 1 GM in 0.9 % Sodium Chloride 50 ML IV (08:52)
[2020-09-21] MEDS: 0.9 % Sodium Chloride Flush 3 ML SYRINGE IVFLUSH ×3 (08:57→20:40)
[2020-09-21 11:42] LABS: Glucose, Whole Blood 145 mg/dL (60-115)
--- NOTE | 2020-09-21 13:11 | P.PNIM_ITS ---
Subjective Subjective Date of Service: 09/21/20 Interval History: the patient was seen and evaluated this morning Laying in bed, feels comfortable overall, diarrhea resolved but some nausea Feels better and tolerating clear liquids Denies any fever, chills or shortness of breath No reported other overnight events. Systemic review: No fever, chills or weakness No chest pain, palpitation No shortness of breath or coughing No abdominal pain, complaining of nausea mainly No urinary symptoms No any rash or wounds Physical Exam Vital Signs: Vital Signs: Last Vital Signs Temp 97.5 F 09/21/20 11:20 Pulse 84 09/21/20 11:20 Resp 16 09/21/20 11:20 BP 131/91 H 09/21/20 11:20 Pulse Ox 99 09/21/20 11:20 Body Mass Index 22.2 Const: Other: Constitutional : Alert, oriented, not in distress Neck : Normal inspection, Supple Cardiovascular : RRR, S1 S2, no lower extremity edema Respiratory : Good bilateral air entry, no crackles, wheezes or rhonchi Gastrointestinal: soft, lax, Normal bowel sounds, left lower quadrant no tenderness with palpation Skin : Warm/Dry, No rash Neurological : Alert & oriented x3, No focal deficit Objective Data Current Medications Generic Name Dose Route Start Last Admin Trade Name Freq PRN Reason Stop Dose Admin Acetaminophen 650 mg 09/19/20 16:44 Acetaminophen 325 Mg Tablet PO Q6H PRN Pain, Mild (Pain Scale 1-3) Amlodipine Besylate 5 mg 09/20/20 09:00 09/21/20 08:51 Amlodipine Besylate 5 Mg Tablet PO 5 mg DAILY MONTEZ Administration Protocol Aspirin 81 mg 09/20/20 09:00 09/21/20 08:51 Aspirin 81 Mg Tab.Chew PO 81 mg DAILY [facility] Administration Atorvastatin Calcium 80 mg 09/19/20 21:00 09/20/20 20:58 Atorvastatin Calcium 80 Mg Tablet PO 80 mg BEDTIME [facility] Administration Metronidazole 500 mg in 100 mls @ 100 mls/hr 09/19/20 17:00 09/21/20 11:00 Flagyl IV Infused Q8H [facility] Infusion Ceftriaxone Sodium 1 gm/ 50 mls @ 100 mls/hr 09/20/20 09:00 09/21/20 09:38 Sodium Chloride IV Infused Q24H [facility] Infusion Insulin Human Lispro 0 unit 09/19/20 21:00 09/21/20 12:16 Insulin Lispro 100 Unit/Ml 3 Ml Vial SUBCUT Not Given QIDACHS [facility] Protocol Loperamide HCl 2 mg 09/20/20 08:21 09/20/20 08:54 Loperamide Hcl 2 Mg Capsule PO 2 mg Q4H PRN Administration Diarrhea Multivitamins/Minerals 1 tab 09/20/20 09:00 09/21/20 08:51 Multivitamin With Minerals Tablet PO 1 tab DAILY [facility] Administration Ondansetron HCl 4 mg 09/21/20 10:19 Ondansetron Hcl 4 Mg/2 Ml Vial IVPUSH Q8H PRN Nausea and Vomiting Pharmacy Consult 1 each 09/19/20 09:04 Consult Rx Perform Med Rec MISCELLANE ONCE PRN Consult order Sodium Chloride 3 ml 09/19/20 16:44 09/21/20 08:57 0.9 % Sodium Chloride Flush 3 Ml Syringe IVFLUSH 3 ml QSHIFT [facility] Administration Labs CBC & Chem 7: 09/20/20 06:17 09/21/20 05:56 Microbiology Microbiology Results: Microbiology 09/19/20 10:33 Blood - Venous Blood Culture - Preliminary No growth after 48 hours. 09/19/20 09:30 Blood - Venous Blood Culture - Preliminary No growth after 48 hours. 09/19/20 18:16 Stool Stool Culture - Preliminary Normal so far. Assessment and Plan (1) FRANCOIS (acute kidney injury): Status: Acute (2) Colitis: Status: Acute Assessment and Plan: This is a 75 yo M who presents with L-sided abdominal pain with associated diarrhea and nausea. His CT scan shows left sided colitis -- ischemic vs inflammatory vs infectious L-sided colitis Improving CT reported left-sided colitis with possible origin ischemic vs inflammatory vs infectious Negative for C diff Continue rocephin/flagyl GI consult if symptoms worsens Advanced diet to regular Acute on chronic anemia Hemoglobin dropped to 11.5 from baseline of around 13.5 Has positive occult blood but no reported bleeding overnight Hold heparin Continue to monitor for bleeding and repeat CBC Thrombocytopenia Platelets dropped to 150 from baseline from 250 Could be related to antibiotics or infection Heparin held Monitor CBC FRANCOIS SCr improving back to baseline DC IV fluids hold lisinopril DM hold metformin use sliding scale HTN norvasc hold lisinopril LA improved with fluids DVT pptx SCDs
[2020-09-21 16:15] LABS: Glucose, Whole Blood 162 mg/dL (60-115)
[2020-09-21] MEDS: Insulin Lispro 100 UNIT/ML 3 ML VIAL SUBCUT ×2 (16:36→20:39)
[2020-09-21 20:34] LABS: Glucose, Whole Blood 176 mg/dL (60-115)
[2020-09-21] MEDS: Atorvastatin Calcium 80 MG TABLET PO (20:39)
[2020-09-21] MEDS: Simethicone 80 MG TAB.CHEW PO (20:39)
[2020-09-22] MEDS: metroNIDAZOLE/NS 500 MG/100 ML PIGGYBACK 100 MG IV ×2 (01:04→07:55)
[2020-09-22 04:00] VITALS: BP 123/65; PULSE 76; RESP 14; TEMP 36.5; O2SAT 97
[2020-09-22 06:48] LABS: Anion Gap 13 (12-20); Blood Urea Nitrogen 24 mg/dL (9-16); Calcium 9.4 mg/dL (8.4-10.2); Carbon Dioxide 27 mmol/L (22-29); Chloride 106 mmol/L (96-108); Estimated Glomerular Filt Rate > 60; Glucose Random 134 mg/dL (60-115); Potassium 5.3 mmol/L (3.3-5.1); Sodium 141 mmol/L (135-145)
[2020-09-22 07:19] LABS: Glucose, Whole Blood 132 mg/dL (60-115)
[2020-09-22 07:43] VITALS: BP 125/68; PULSE 83; RESP 18; TEMP 36.4; O2SAT 99
[2020-09-22] MEDS: Aspirin 81 MG TAB.CHEW PO (07:55)
[2020-09-22] MEDS: amLODIPine Besylate 5 MG TABLET PO (07:55)
[2020-09-22] MEDS: 0.9 % Sodium Chloride Flush 3 ML SYRINGE IVFLUSH (08:21)
--- NOTE | 2020-09-22 08:33 | P.CDIC_ITS ---
[facility] Concurrent Query Service Date: 09/22/20 Documentation Clarification: Please clarify if you are treating a proba ble/suspected/likely or confirmed: LABS: Hyperkalemia Please specify if known Provider Response: Other Other Diagnosis: Hyperkalemia PLEASE DO NOT DELETE/MODIFY EXISTING CONTENT Additional information is needed in order to code to the highest accuracy and appropriate Severity of Illness (SOI). Please clarify the information noted below in your progress notes and discharge summary. Risk Factors/Clinical Indicators/Treatments LAB FINDINGS: potassium 5.3 H IV Fluids CDS: Abida Corey CCS, [facility] Contact Number: [phone] Please Review the information above and exercise your independent professional judgment in responding to the query. If you concur, pleas document in the PROGRESS NOTES and DISCHARGE SUMMARY. If you do not agree with the query, please document in the query above. THIS QUERY IS PART OF THE PERMANENT MEDICAL RECORD
[2020-09-22 08:41] LABS: Hematocrit 40.7 % (42-52); Hemoglobin 13.5 g/dl (14.0-18.0); Mean Corpuscular HGB Conc 33.2 g/dl (31.0-36.0); Mean Corpuscular Hemoglobin 31.2 pg (27.0-33.0); Mean Platelet Volume 11.3 fL (9.4-12.4); Platelet Count 227 X10*3/uL (160-400); Red Blood Count 4.33 X10*6/uL (4.60-5.80); Red Cell Distribution Width 12.9 % (11.0-16.0); White Blood Count 7.7 X10*3/uL (4.8-10.8)
[2020-09-22] MEDS: cefTRIAXone sodium 1 GM in 0.9 % Sodium Chloride 50 ML IV (09:13)
--- NOTE | 2020-09-22 10:04 | PM.DS ---
DS: Providers Provider Date of Service: 09/22/20 Date of admission: 09/19/20 16:44 Primary care physician: Unknown Physician DS: Diagnosis Discharge Diagnosis (1) FRANCOIS (acute kidney injury): Status: Acute (2) Colitis: Status: Acute (3) Acidosis, lactic: Status: Acute (4) Acute dehydration: Status: Acute DS: Medications Discharge Medications Home Medications: Home Medications Medication Instructions Recorded Confirmed Centrum Silver Men 1 tab PO DAILY 09/19/20 09/19/20 amlodipine 1 tab PO DAILY 09/19/20 09/19/20 aspirin 81 mg PO DAILY 09/19/20 09/19/20 lisinopril 1 tab PO DAILY 09/19/20 09/19/20 metformin 1 tab PO BEDTIME 09/19/20 09/19/20 rosuvastatin 1 tab PO BEDTIME 09/19/20 09/19/20 Previous Rx's Medication Instructions Recorded cefuroxime axetil 250 mg PO BID #8 tab 09/22/20 metronidazole [Flagyl] 500 mg PO BID #8 tab 09/22/20 DS: Summary Hospital Course Hospital Course: Admission note HPI This is a 75-year-old male with a past medical history as outlined below who presents to the hospital complaints of nausea and left-sided abdominal pain of one-day duration. Patient reports that over the last several days he has had some diarrhea and back pain. He reports that he was seen for back pain in the emergency room 2 days ago and was prescribed some muscle relaxers and narcotics. He reports that he has some intolerance to narcotics and started having subsequent vomiting with associated left-sided pain. He reports that his diarrhea has been going on for 3-4 days, nonbloody and he has been going about 4 to 5 times a day. Reports that the pain started several days after the diarrhea. He denies any fevers but does endorse some chills at home yesterday. Denies any recent antibiotic use. Denies eating outside the house. Hospital course Patient was admitted to the hospital for evaluation of nausea and vomiting with associated lower back and abdominal pain with diarrhea. CT scan of the abdomen significant for left-sided colitis with blood work showing signs of acute kidney injury with creatinine of 1.75 from baseline of 1. He was treated with IV antibiotics of ceftriaxone and Flagyl and IV fluids with good response over the course of hospital stay as his diet was advanced with good tolerance. Tested negative for C diff. Blood cultures remain negative. CT scan was also notable for enlarged prostate. He can follow up with primary care for PSA testing. To be discharged home on Ceftin and Flagyl to finish total days 7 of antibiotics Supposed to follow up with his primary care as outpatient next week. Time Spent with Patient Time attestation: Total time spent providing and/or coordinating discharge services: Discharge coordination time: Greater than 30 minutes Physical Exam Vital Signs: Vital Signs: Last Vital Signs Temp 97.5 F 09/22/20 07:43 Pulse 83 09/22/20 07:43 Resp 18 09/22/20 07:43 BP 125/68 09/22/20 07:43 Pulse Ox 99 09/22/20 07:43 Body Mass Index 22.2 Const: Other: Constitutional : Alert, oriented, not in distress Neck : Normal inspection, Supple Cardiovascular : RRR, S1 S2, no lower extremity edema Respiratory : Good bilateral air entry, no crackles, wheezes or rhonchi Gastrointestinal: soft, lax, Normal bowel sounds, no tenderness Skin : Warm/Dry, No rash Neurological : Alert & oriented x3, No focal deficit DS: Data Data Completed and Pending Labs on day of discharge: Laboratory Results - last 24 hr 09/21/20 09/21/20 09/21/20 11:16 15:55 20:26 WBC RBC Hgb Hct MCV MCH MCHC RDW Plt Count MPV Absolute Nucleated RBC Nucleated RBC % (auto) Sodium Potassium Chloride Carbon Dioxide Anion Gap BUN Creatinine Estim Creat Clear Calc Estimated GFR POC Glucose 145 H 162 H 176 H Random Glucose Calcium 09/22/20 09/22/20 09/22/20 06:00 07:15 07:54 WBC 7.7 RBC 4.33 L Hgb 13.5 L Hct 40.7 L MCV 94.0 MCH 31.2 MCHC 33.2 RDW 12.9 Plt Count 227 D MPV 11.3 Absolute Nucleated RBC 0.000 Nucleated RBC % (auto) 0.0 Sodium 141 Potassium 5.3 H Chloride 106 Carbon Dioxide 27 Anion Gap 13 BUN 24 H Creatinine 1.10 Estim Creat Clear Calc 57.0 Estimated GFR > 60 POC Glucose 132 H Random Glucose 134 H Calcium 9.4 Preliminary micro results at discharge 09/19/20 10:33 Blood Culture - Preliminary Blood - Venous No growth after 48 hours. 09/19/20 09:30 Blood Culture - Preliminary Blood - Venous No growth after 48 hours. Discharge Plan Discharge Patient Disposition: Home, Self-Care Discharge Diagnosis: Colitis Kidney injury Referrals: Physician,Unknown [Primary Care Provider] - 1 Week Discharge Medications: New cefuroxime axetil 250 mg tablet 250 mg PO BID Qty: 8 RF: 0 metronidazole [Flagyl] 500 mg tablet 500 mg PO BID Qty: 8 RF: 0 Continued amlodipine 5 mg tablet 1 tab PO DAILY RF: 0 metformin 1,000 mg tablet 1 tab PO BEDTIME RF: 0 lisinopril 10 mg tablet 1 tab PO DAILY RF: 0 aspirin 81 mg Tablet,Chewable 81 mg PO DAILY RF: 0 rosuvastatin 20 mg tablet 1 tab PO BEDTIME RF: 0 Centrum Silver Men 300-600-300 mcg Tablet 1 tab PO DAILY RF: 0 Discharge Orders: Discharge Order (Routine); Ordered 09/22/20 Ordered By: Rishi Abdi Diet: advance to usual diet Activity on Discharge: As tolerated Stand Alone Forms: Patient Portal Discharge page Activity Restrictions/Additional Instructions: 1. Continue to drink plenty of water. 2. advance diet as tolerated Care Plan Goals: Read below Health Concerns: Read below Plan of Treatment: You have presented to the hospital with left-sided back pain associated with nausea and diarrhea. Images in the emergency were concerning for acute colitis which was treated with IV fluids, IV antibiotics with good response as your diet was advanced with good tolerance. Your kidney function was noticed to be altered at time of presentation and corrected back to baseline with IV fluids. Assessment: Continue Ceftin and Flagyl as prescribed Advance your diet as tolerated To follow up with PCP next week Patient Instructions: Colitis (ED)
[2020-09-22] MEDS: Sodium Polystyrene Sulfon/Sorb 15 GM/60 ML ORAL.SUSP 30 GM PO (11:47)
== END 2020-09-22 12:18 | disposition home or self-care (01) | DRG 386 ==
LOC: HO.ED 09-19 09:06 → HO.S3 09-19 17:13
PROVIDERS: Emergency Medicine; Internal Medicine; Admitting Provider Family Medicine; Emergency Provider Student in an Organized Health Care Education/Training Program; Visit Provider Student in an Organized Health Care Education/Training Program
DX: K51.50 Left sided colitis without complications (principal); N17.9 Acute kidney failure, unspecified; E87.2 Acidosis; R19.5 Other fecal abnormalities; Z88.5 Allergy status to narcotic agent; D69.6 Thrombocytopenia, unspecified; E87.5 Hyperkalemia; E11.9 Type 2 diabetes mellitus without complications; I10 Essential (primary) hypertension; E86.0 Dehydration; Z79.82 Long term (current) use of aspirin; Z79.84 Long term (current) use of oral hypoglycemic drugs; Z79.899 Other long term (current) drug therapy
CPT/HCPCS: 36415; 71045; 72100; 74176; 80048; 80053; 81003; 82009; 82272; 82947; 83605; 85025; 85027; 85610; 87040; 87045; 87046; 87324; 87449; 93005; 96365; 96366; 96375; 99285; J0696; J1956; J2405

== ENCOUNTER 2021-11-24 22:17 | Emergency (ER) | payer MEDICARE, SELFPAY ==
[2021-11-24 22:31] VITALS: BP 160/100; PULSE 101; O2SAT 100
[2021-11-24 22:32] VITALS: BP 168/74; PULSE 100; RESP 16; TEMP 37.1; O2SAT 98; BMI 21.8
--- NOTE | 2021-11-24 22:44 | ED_ITS ---
HPI - Chest Pain General Chief Complaint: Nausea/Vomiting/Diarrhea Stated Complaint: heartburn and chills Time Seen by Provider: 11/24/21 22:44 Source: patient Mode of arrival: ambulatory Limitations: no limitations History of Present Illness HPI narrative: severe heartburn all day after lunch. Now with Nausea and vomiting, no diarrhea. He feels shakey no fever. complaint: other (heartburn) Onset (ago): hour(s) Timing of current episode: constant Onset: during rest Pain location: substernal Pain radiation: none Quality: burning Associated symptoms: nausea and vomiting Related Data Home Medications Medication Instructions Recorded Confirmed amlodipine 5 mg tablet 1 tab PO DAILY 09/19/20 09/19/20 aspirin 81 mg chewable tablet 81 mg PO DAILY 09/19/20 09/19/20 lisinopril 10 mg tablet 1 tab PO DAILY 09/19/20 09/19/20 metformin 1,000 mg tablet 1 tab PO BEDTIME 09/19/20 09/19/20 prcsmlvh-ugo-ztymq acid 300 1 tab PO DAILY 09/19/20 09/19/20 mcg-lycopene 600 mcg-lutein 300 mcg tablet (Centrum Silver Men) rosuvastatin 20 mg tablet 1 tab PO BEDTIME 09/19/20 09/19/20 Previous Rx's Medication Instructions Recorded cefuroxime axetil 250 mg tablet 250 mg PO BID #8 tabs 09/22/20 metronidazole 500 mg tablet 500 mg PO BID #8 tabs 09/22/20 (Flagyl) cephalexin 500 mg capsule 500 mg PO QID 10 days #40 caps 11/25/21 Allergies Allergy/AdvReac Type Severity Reaction Status Date / Time acetaminophen [Percocet] AdvReac Intermediate Vomiting Verified 09/17/20 13:29 codeine AdvReac Intermediate Vomiting Verified 09/17/20 13:29 fentanyl [FENTANYL] AdvReac Intermediate Vomiting Verified 09/17/20 13:29 hydrocodone [Vicodin] AdvReac Intermediate Vomiting Verified 09/17/20 13:29 meperidine [Demerol] AdvReac Intermediate Vomiting Verified 09/17/20 13:29 Opioids-Meperidine and AdvReac Intermediate VOMITING Verified 09/17/20 13:29 Related [OPIOIDS-MEPERIDINE & RELATED] oxycodone AdvReac Intermediate Vomiting Verified 09/17/20 13:29 propoxyphene [From DARVON] AdvReac Intermediate NAUSEA & Verified 09/17/20 13:29 VOMITING tramadol [TRAMADOL] AdvReac Intermediate NAUSEA & Verified 09/17/20 13:29 VOMITING Darvon Allergy Intermediate Vomiting Uncoded 09/17/20 13:29 Darvocet-N 50 AdvReac Intermediate Vomiting Uncoded 09/17/20 13:29 Review of Systems Constitutional: Constitutional: Reports no additional constitutional complaints Eyes: Eyes: Reports no additional eye complaints ENT: Denies dizziness Cardiovascular: Cardiovascular: Reports no additional cardiovascular co mplaints Respiratory: Respiratory: Reports as per HPI Gastrointestinal: Gastrointestinal: Reports no additional gastrointestinal complaints Musculoskeletal: Musculoskeletal: Reports no additional musculoskeletal complaints Integumentary/Breasts: Skin/Breast: Denies rash Neurologic: Reports system reviewed and no additional complaints, except as documented, Denies dizziness and Denies Sensory deficit (Neuro) Psychiatric: Psychiatric: Denies anxiety [facility] Past Medical History Medical History Cataract Chronic back pain Deviated septum Diabetes High blood pressure Kidney stones Vitreomacular adhesion of left eye Surgical History H/O rotator cuff surgery Hx of vitrectomy Previous back surgery S/P hernia surgery Social History Social History Household Members: None Housing: House Do you presently have visiting nurse or other home services: No Alcohol intake: never Patient Tobacco Use Status: Never used Tobacco Use of substances other than those prescribed or required for medical reasons: No Advance Directives: No Advance Directives Information Provided: Yes service: No Current occupational status: retired Physical Exam Vital Signs: Vital Signs: Last Vital Signs Temp 100.9 F H 11/24/21 23:19 Pulse 96 11/24/21 23:19 Resp 20 11/24/21 23:19 BP 150/61 H 11/24/21 23:19 Pulse Ox 97 11/24/21 23:19 O2 Del Method 11/24/21 23:19 BMI result Body Mass Index 21.8 Const: Other: thin male looking uncomfortable Nutritional Appearance: average body habitus Orientation/consciousness: oriented to person and patient oriented x3 Limitations: no limitations HEENT: Head: Yes normal to inspection Ears: external ears normal General nose exam: Normal external nose present Mouth: Normal oral and palatal m ucosa present and oropharynx normal Throat: Yes posterior oropharynx normal Eyes: General: appearance normal, both eyes and all related structures Neck: Other: supple Neck: Yes normal visual inspection Chest: Chest palpation & inspection: normal inspection of the chest Resp: Auscultation: clear to auscultation bilaterally Cardio: Jugular venous distension: no JVD Rate: regular rate Rhythm: regular rhythm Heart sounds: S1 normal heart sound present and S2 normal heart sound present GI: Inspection: Yes normal to inspection Palpation (GI): Soft to palpation, nontender and No hepatosplenomegaly present Auscultation: normal bowel sounds : General: Yes no CVA tenderness Back/Spine/Pelvis: Back: no CVA tenderness Skin: General skin exam: no rashes or lesions noted Neuro: General: oriented to person and patient oriented x3 Cranial nerves: Yes CN's II-XII intact bilaterally Motor exam (neuro): 5/5 motor strength present throughout Sensory Exam: No Sensory deficit (Neuro) Extrem: General: Yes normal to inspection Psych: Appearance: grossly normal Course Reevaluation(s) Reevaluation #1: patient with non cardiac heartburn, he complained of dysuria and frequency. his glucos was high but he has 10-14 WBC that I will treat. He is afebrile and does not have and elevated WBC so I will dc home on keflex Time: 00:19 MDM - Chest Pain Lab Data Result diagrams: 11/24/21 23:29 11/24/21 23:29 Labs: Lab Results 11/24/21 11/24/21 11/24/21 Range/Units 23:29 23:29 23:29 WBC 8.3 (4.8-10.8) X10*3/uL RBC 3.87 L (4.60-5.80) X10*6/uL Hgb 12.0 L (14.0-18.0) g/dl Hct 34.9 L (42.0-52.0) % MCV 90.2 (80.0-98.0) fL MCH 31.0 (27.0-33.0) pg MCHC 34.4 (31.0-36.0) g/dl RDW 13.2 (11.0-16.0) % Plt Count 172 (160-400) X10*3/uL MPV 10.8 (9.4-12.4) fL Immature Gran % (Auto) 0.4 (0.0-0.4) % Neut % (Auto) 95.1 H (45-73) % Lymph % (Auto) 3.4 L (20-40) % [place] % (Auto) 0.4 L (2-11) % Eos % (Auto) 0.5 (0-4) % Baso % (Auto) 0.2 (0-2) % Lymph # (Auto) 0.3 L (1.2-4.9) X10*3/uL [place] # (Auto) 0.0 L (0.1-1.2) X10*3/uL Eos # (Auto) 0.0 (0.0-0.4) X10*3/uL Baso # (Auto) 0.0 (0.0-0.2) X10*3/uL Abs Immat Gran (auto) 0.03 (0.00-0.03) X10*3/uL Absolute Neuts (auto) 7.9 (2.0-8.3) x10*3/uL Absolute Nucleated RBC 0.000 (0.0-0.012) X10*3/uL Nucleated RBC % (auto) 0.0 (0.0-0.2) /100WBC Sodium 138 (135-145) mmol/L Potassium 4.5 (3.3-5.1) mmol/L Chloride 106 (96-108) mmol/L Carbon Dioxide 21 L (22-29) mmol/L Anion Gap 16 (12-20) BUN 24 H (9-16) mg/dL Creatinine 1.14 (0.5-1.4) mg/dL Estim Creat Clear Calc 53.1 Estimated GFR > 60 Random Glucose 216 H D (60-115) mg/dL Calcium 9.3 (8.4-10.2) mg/dL Total Bilirubin 0.6 (0.0-1.0) mg/dL Direct Bilirubin 0.3 (0.0-0.5) mg/dL AST 19 (5-37) U/L ALT 17 (0-40) U/L Alkaline Phosphatase 74 (39-117) U/L Troponin I High Sens < 3.5 (<3.5-35.0) ng/L Total Protein 6.5 (6.5-8.0) g/dL Albumin 4.0 (3.5-5.0) g/dL Lipase 10 (8-78) U/L Urine Color Urine Appearance Urine pH (5.0-8.0) Ur Specific Sherrill (1.005-1.025) Urine Protein (NEG-TRACE) MG/DL Urine Glucose (UA) (NEG) MG/DL Urine Ketones (NEG) MG/DL Urine Blood (NEG) Urine Nitrite (NEG) Ur Leukocyte Esterase (NEG) Urine RBC (0) /HPF Urine WBC (0-4) /HPF Ur Squamous Epith Cells /LPF Urine Bacteria /LPF 11/24/21 Range/Units 23:29 WBC (4.8-10.8) X10*3/uL RBC (4.60-5.80) X10*6/uL Hgb (14.0-18.0) g/dl Hct (42.0-52.0) % MCV (80.0-98.0) fL MCH (27.0-33.0) pg MCHC (31.0-36.0) g/dl RDW (11.0-16.0) % Plt Count (160-400) X10*3/uL MPV (9.4-12.4) fL Immature Gran % (Auto) (0.0-0.4) % Neut % (Auto) (45-73) % Lymph % (Auto) (20-40) % [place] % (Auto) (2-11) % Eos % (Auto) (0-4) % Baso % (Auto) (0-2) % Lymph # (Auto) (1.2-4.9) X10*3/uL [place] # (Auto) (0.1-1.2) X10*3/uL Eos # (Auto) (0.0-0.4) X10*3/uL Baso # (Auto) (0.0-0.2) X10*3/uL Abs Immat Gran (auto) (0.00-0.03) X10*3/uL Absolute Neuts (auto) (2.0-8.3) x10*3/uL Absolute Nucleated RBC (0.0-0.012) X10*3/uL Nucleated RBC % (auto) (0.0-0.2) /100WBC Sodium (135-145) mmol/L Potassium (3.3-5.1) mmol/L Chloride (96-108) mmol/L Carbon Dioxide (22-29) mmol/L Anion Gap (12-20) BUN (9-16) mg/dL Creatinine (0.5-1.4) mg/dL Estim Creat Clear Calc Estimated GFR Random Glucose (60-115) mg/dL Calcium (8.4-10.2) mg/dL Total Bilirubin (0.0-1.0) mg/dL Direct Bilirubin (0.0-0.5) mg/dL AST (5-37) U/L ALT (0-40) U/L Alkaline Phosphatase (39-117) U/L Troponin I High Sens (<3.5-35.0) ng/L Total Protein (6.5-8.0) g/dL Albumin (3.5-5.0) g/dL Lipase (8-78) U/L Urine Color YELLOW Urine Appearance CLEAR Urine pH 6.0 (5.0-8.0) Ur Specific [place]rill 1.020 (1.005-1.025) Urine Protein NEG (NEG-TRACE) MG/DL Urine Glucose (UA) 100 H (NEG) MG/DL Urine Ketones NEG (NEG) MG/DL Urine Blood 2+ H (NEG) Urine Nitrite NEG (NEG) Ur Leukocyte Esterase 1+ H (NEG) Urine RBC 1-4 (0) /HPF Urine WBC 10-14 H (0-4) /HPF Ur Squamous Epith Cells 1+ /LPF Urine Bacteria 1+ /LPF ECG Data ECG #1: Attestation: I personally reviewed and interpreted this ECG as follows: Interpretation: sinus rate of 95, no st or twave changes, incomplete RBBB Discharge Plan Discharge Clinical Impression: Urinary tract infection, Dyspepsia Patient Disposition: Home, Self-Care Instructions: Urinary Tract Infection in Men (ED) Prescriptions: New cephalexin 500 mg capsule 500 mg PO QID 10 Days Qty: 40 0RF No Action amlodipine 5 mg tablet 1 tab PO DAILY metformin 1,000 mg tablet 1 tab PO BEDTIME lisinopril 10 mg tablet 1 tab PO DAILY aspirin 81 mg Tablet,Chewable 81 mg PO DAILY rosuvastatin 20 mg tablet 1 tab PO BEDTIME Centrum Silver Men 300-600-300 mcg Tablet 1 tab PO DAILY cefuroxime axetil 250 mg tablet 250 mg PO BID Qty: 8 0RF metronidazole [Flagyl] 500 mg tablet 500 mg PO BID Qty: 8 0RF Referrals: Physician,Unknown J [Primary Care Provider] - 5 days
--- NOTE | 2021-11-24 22:50 | ECG_ITS ---
Test Reason : NAUSEA WITH VOMITING Blood Pressure : / mmHG Vent. Rate : 094 BPM Atrial Rate : 094 BPM P-R Int : 188 ms QRS Dur : 096 ms QT Int : 340 ms P-R-T Axes : 048 -83 062 degrees QTc Int : 425 ms Normal sinus rhythm with sinus arrhythmia Left axis deviation Incomplete right bundle branch block Abnormal ECG When compared with ECG of 19-SEP-2020 00:08, No significant change was found Referred By: Inderjit Llanes Electronically Signed By:FAM WELSH
[2021-11-24 23:19] VITALS: BP 150/61; PULSE 96; RESP 20; TEMP 38.3; O2SAT 97
[2021-11-24 23:34] LABS: MANUAL DIFF FLAG NO
[2021-11-24] MEDS: ondansetron HCL 4 MG/2 ML VIAL IVPUSH (23:35)
[2021-11-24] MEDS: Lidocaine HCl Viscous 2 % 15 ML SOLUTION MUCOUS MEM (23:35)
[2021-11-24] MEDS: Pantoprazole Sodium 40 MG/10 ML VIAL IVPUSH (23:35)
[2021-11-24] MEDS: Magnesium Hydrox/Alum Hydrox 30 ML ORAL.SUSP PO (23:35)
[2021-11-24] MEDS: PHENobarb/Hyoscy/Atropine/Scop 10 ML ELIXIR PO (23:35)
[2021-11-24 23:36] LABS: Appearance Urine CLEAR; Basophils Percent Auto 0.2 % (0-2); Color Urine YELLOW; Eosinophils Percent Auto 0.5 % (0-4); Glucose Urine UA 100 MG/DL (NEG); Hematocrit 34.9 % (42.0-52.0); Imm Gran Abs Auto 0.03 X10*3/uL (0.00-0.03); Imm Gran Pct Auto 0.4 % (0.0-0.4); Leukocyte Esterase Urine 1+ (NEG); Lymphocytes Absolute Auto 0.3 X10*3/uL (1.2-4.9); Lymphocytes Percent Auto 3.4 % (20-40); Mean Corpuscular HGB Conc 34.4 g/dl (31.0-36.0); Mean Corpuscular Volume 90.2 fL (80.0-98.0); Mean Platelet Volume 10.8 fL (9.4-12.4); Monocytes Percent Auto 0.4 % (2-11); Neutrophils Absolute Auto 7.9 x10*3/uL (2.0-8.3); Neutrophils Percent Auto 95.1 % (45-73); Nitrite Urine NEG (NEG); Platelet Count 172 X10*3/uL (160-400); Red Blood Count 3.87 X10*6/uL (4.60-5.80); Red Cell Distribution Width 13.2 % (11.0-16.0); SCAN SMEAR FLAG 1; UACC Culture Trigger YES; Urine Blood 2+ (NEG); Urine Ketones NEG (NEG); Urine Protein NEG (NEG-TRACE); White Blood Count 8.3 X10*3/uL (4.8-10.8)
[2021-11-24 23:51] LABS: Bacteria Urine 1+ /LPF; Squamous Epithelial Cell Urine 1+ /LPF
[2021-11-24 23:57] LABS: Alanine Aminotransferase 17 U/L (0-40); Alkaline Phosphatase 74 U/L (39-117); Anion Gap 16 (12-20); Aspartate Amino Transferase 19 U/L (5-37); Bilirubin Direct 0.3 mg/dL (0.0-0.5); Bilirubin Total 0.6 mg/dL (0.0-1.0); Blood Urea Nitrogen 24 mg/dL (9-16); Calcium 9.3 mg/dL (8.4-10.2); Carbon Dioxide 21 mmol/L (22-29); Chloride 106 mmol/L (96-108); Creatinine Clr Calc Pharmacy 53.1; Estimated Glomerular Filt Rate > 60; Glucose Random 216 mg/dL (60-115); Lipase 10 U/L (8-78); Potassium 4.5 mmol/L (3.3-5.1); Sodium 138 mmol/L (135-145); Total Protein 6.5 g/dL (6.5-8.0)
[2021-11-25 00:02] LABS: Troponin-I High Sensitivity < 3.5 ng/L (<3.5-35.0)
[2021-11-25] MEDS: cephALEXin 500 MG CAPSULE PO (00:32)
== END 2021-11-25 00:33 | disposition home or self-care (01) ==
PROVIDERS: Emergency Provider Emergency Medicine
DX: R10.13 Epigastric pain (principal); N39.0 Urinary tract infection, site not specified; E11.9 Type 2 diabetes mellitus without complications
CPT/HCPCS: 36415; 80048; 80076; 81001; 83690; 84484; 85025; 87086; 93005; 96374; 99284; J2405

== ENCOUNTER 2023-10-21 08:49 | Emergency (ER) | payer MEDICARE, SELFPAY ==
--- NOTE | ~2023-10-21 | CT_ITS ---
EXAMINATION: CT THORACIC SPINE WITHOUT CONTRAST CLINICAL INFORMATION: Lifting injury. Tender to touch. COMPARISON: CT abdomen pelvis dated 09/19/2020. TECHNIQUE: Noncontrast computed tomography of the thoracic spine was performed. This CT examination was performed using dose optimization techniques as appropriate, variously including the following: *Automated exposure control *Adjustment of mA and/or kV according to patient size (this includes techniques or standardized protocols for targeted exams where dose is matched to indication/reason for exam; i.e. extremities or head) *Use of iterative reconstruction technique DLP: 455 mGy-cm FINDINGS: There is curvature of the thoracolumbar spine, concave towards the right side. Spinal alignment is anatomic in the sagittal projection. There is a stable superior endplate compression deformity involving the T12 vertebral body. There is approximately 35% height loss of the T12 vertebral body. There is a compression deformity involving the inferior endplate of the T8 vertebral body resulting in approximately 30% height loss. There is a minimal compression deformity of the superior endplate of T7. Remaining thoracic vertebral bodies demonstrate preserved stature. The facet joints are anatomically aligned. There is no acute fracture. There is no spinal canal stenosis at any thoracic level. The paraspinal soft tissue is normal in appearance. The visualized lungs are clear. The trachea and central airways are widely patent. Heart size appears normal. The visualized thyroid gland is normal in appearance. There is calcific atherosclerotic disease throughout the visualized aorta. Visualized retroperitoneal structures are unremarkable. CT/CT thoracic spine wo IV con IMPRESSION: No acute osseous thoracic spine abnormality. There is a stable superior endplate compression deformity involving the T12 vertebral body with approximately 35% height loss. There is a compression deformity involving the inferior endplate of the T8 vertebral body resulting in approximately 30% height loss. There is minimal compression deformity of the superior endplate of T7. There is no spinal canal stenosis at any thoracic level. Fleischner guidelines were followed.
[2023-10-21 08:54] VITALS: BP 146/62; PULSE 94; RESP 18; TEMP 36.1; O2SAT 100; BMI 21.4
--- NOTE | 2023-10-21 10:44 | ED.BACK ---
HPI - Back Pain/Injury General Chief Complaint: Back Pain/Injury Stated Complaint: back inj Time Seen by Provider: 10/21/23 10:44 Source: patient Mode of arrival: ambulatory Limitations: no limitations History of Present Illness HPI Narrative: patient is a 78-year-old male who presents emergency department for evaluation of right thoracic back pain. He reports yesterday he was lifting a bag of fertilizer, he was holding the bag in front of his chest when it started to feel too heavy and he started to lean forward to place the back down when suddenly he felt a sharp pain to the lower thoracic spine quickly radiated to the right side. He reports a persistent not like pain to the right subscapular region. He has tried ice and 1g of acetaminophen every 6 hours without any relief. He reports a history disc herniations with surgical repair to the lumbar region. Denies any numbness or tingling to his extremities, bladder bowel dysfunction. Denies associated chest pain, shortness of breath, difficulty breathing. MD elicited complaint: back pain Related Data Home Medications ?Medication ?Instructions ?Recorded ?Confirmed amlodipine 5 mg tablet 1 tab PO DAILY 09/19/20 09/19/20 aspirin 81 mg chewable tablet 81 mg PO DAILY 09/19/20 09/19/20 lisinopril 10 mg tablet 1 tab PO DAILY 09/19/20 09/19/20 metformin 1,000 mg tablet 1 tab PO BEDTIME 09/19/20 09/19/20 jyngssll-np-serhj 300 mcg-K 60 1 tab PO DAILY 09/19/20 09/19/20 mcg-lycop 600 mcg-lutein 300 mcg tablet (Centrum Silver Men) rosuvastatin 20 mg tablet 1 tab PO BEDTIME 09/19/20 09/19/20 Previous Rx's ?Medication ?Instructions ?Recorded cefuroxime axetil 250 mg tablet 250 mg PO BID #8 tabs 09/22/20 metronidazole 500 mg tablet 500 mg PO BID #8 tabs 09/22/20 (Flagyl) cephalexin 500 mg capsule 500 mg PO QID 10 days #40 caps 11/25/21 cyclobenzaprine 10 mg tablet 10 mg PO TID PRN muscle spasm #20 10/21/23 tabs Allergies Allergy/AdvReac Type Severity Reaction Status Date / Time acetaminophen [Percocet] AdvReac Intermediate Vomiting Verified 10/21/23 08:55 codeine AdvReac Intermediate Vomiting Verified 10/21/23 08:55 fentanyl [FENTANYL] AdvReac Intermediate Vomiting Verified 10/21/23 08:55 hydrocodone [Vicodin] AdvReac Intermediate Vomiting Verified 10/21/23 08:55 meperidine [Demerol] AdvReac Intermediate Vomiting Verified 10/21/23 08:55 Opioids-Meperidine and AdvReac Intermediate VOMITING Verified 10/21/23 08:55 Related [OPIOIDS-MEPERIDINE & RELATED] oxycodone AdvReac Intermediate Vomiting Verified 10/21/23 08:55 propoxyphene [From DARVON] AdvReac Intermediate NAUSEA & Verified 10/21/23 08:55 VOMITING tramadol [TRAMADOL] AdvReac Intermediate NAUSEA & Verified 10/21/23 08:55 VOMITING Darvon Allergy Intermediate Vomiting Uncoded 10/21/23 08:55 Darvocet-N 50 AdvReac Intermediate Vomiting Uncoded 10/21/23 08:55 Review of Systems Review of Systems: Yes all other systems are reviewed and are negative PMFSH Past Medical History Attestation statement: The following information was validated with the patient. Source: old records reviewed Medical History Cataract Vitreomacular adhesion of left eye Kidney stones Chronic back pain High blood pressure Diabetes Deviated septum Surgical History Hx of vitrectomy H/O rotator cuff surgery S/P hernia surgery Previous back surgery Social History Social History Household Members: None Housing: House Do you presently have visiting nurse or other home services: No Alcohol intake: never Patient Tobacco Use Status: Never used Tobacco Smoked in Last 30 Days: No Use of substances other than those prescribed or required for medical reasons: No Advance Directives: Yes Advance Directives Information Provided: Yes Advance Directives on File: No service: No Current occupational status: retired Physical Exam Vital Signs: Vital Signs: Last Vital Signs Temp 97.6 F 10/21/23 12:00 Pulse 90 10/21/23 12:00 Resp 16 10/21/23 12:00 BP 130/70 10/21/23 12:00 Pulse Ox 99 10/21/23 12:00 O2 Del Method Room Air 10/21/23 12:00 BMI result Body Mass Index 21.4 Appearance: Alert.?Oriented to person, place and time. No acute distress.?Normal affect. Eyes: Pupils equal, round and reactive to light.? ENT: Pharynx normal.?? Neck: Normal inspection.? Neck supple.?? CVS: Heart sounds normal. Normal heart rate and rhythm.? Pulses normal; bilateral radial pulses 2+, bilateral posterior tibial/dorsalis pedis pulses 2+.? Respiratory: No respiratory distress.? Lung sounds clear to auscultation bilaterally?? Abdomen: Soft and non-tender. Normoactive bowel sounds. No pulsatile mass.?? Skin: Skin warm and dry.? Normal skin color.? Extremities: No lower extremity edema.? Back: + Moderate right paraspinal muscular tenderness from lower thoracic region. No CVA tenderness. No midline spinal tenderness, step-off's, or deformity. Full ROM intact in bilateral lower extremities. No rashes, lesions, areas of induration or fluctuance, or signs of infection noted., Neuro: Moves all extremities spontaneously. 5/5 strength in hip extension/flexion, abduction, adduction. Sensation to light touch intact bilaterally. Patellar and Achilles reflex 2+ bilaterally. No ataxia, gait normal and steady.. No focal neuro deficits. Medications Administered Discontinued Medications Generic Name Dose Route Start Last Admin Trade Name Freq PRN Reason Stop Dose Admin Cyclobenzaprine HCl 10 mg 10/21/23 11:00 10/21/23 12:09 Cyclobenzaprine Hcl 10 Mg Tablet PO 10/21/23 11:01 10 mg ONCE ONE Administration Medical Decision Making Medical Decision Making [facility] Narrative: patient is a 78-year-old male presents emergency department for evaluation right subscapular /lateral thoracic back pain as per HPI and physical exam portion of this note. Does not have midline thoracic spine tenderness, step-offs, deformities. Suspect at this time Pain is most consistent with muscular pain, although cannot completely exclude herniated disc. On neurological exam there are no deficits. given age and precipitating injury with heavy lifting CT was obtained to evaluate further for compression fracture osseous abnormality, appears to have stable T7, T8, and T12 compression fracture, no evidence of central canal stenosis. Not consistent with spinal infection, epidural abscess, AAA, epidural abscess, or dissection. No high risk past medical history including incontinence, fever, immunosuppression, recent surgery or lumbar puncture, coagulopathy, significant trauma, recent unintentional weight loss, pulsatile mass, history of cancer, history of TB, history of IV drug use that would warrant MRI. Not consistent with pyelonephritis, urinary tract infection, renal calculi, appendicitis, diverticulitis. On exam no concern for cauda equina syndrome. Plan for discharge home with Prescription for cyclobenzaprine as this did help his pain while in the emergency department, and follow-up with primary care provider, and patient agreed with plan. Differential Diagnosis Differential Diagnoses: The differential diagnosis associated with the presentation includes ( see narrative above) Admission/Observation Consideration of admission/observation: Escalation of care including admission/observation considered ( see narrative above) Radiology Impression Discussion of test interpretation with radiology: I have reviewed the radiologist's reading. Radiologist Impression: CT/CT thoracic spine wo IV con IMPRESSION: No acute osseous thoracic spine abnormality. There is a stable superior endplate compression deformity involving the T12 vertebral body with approximately 35% height loss. There is a compression deformity involving the inferior endplate of the T8 vertebral body resulting in approximately 30% height loss. There is minimal compression deformity of the superior endplate of T7. There is no spinal canal stenosis at any thoracic level. External Record Review External record reviewed: Outpatient record Prescription Management I considered prescription management with: Pain Medication Discharge Plan Discharge Clinical Impression: Thoracic back pain Patient Disposition: Home, Self-Care Instructions: Vertebral Compression Fracture (ED), Thoracic Pain (ED) Additional Instructions: as discussed, your imaging today shows evidence of compression fractures at T7, T8, and T12. You can take Acetaminophen/Tylenol 500 mg, 2 tablets (1,000mg) every 4-6 hours as needed for pain, but not to exceed 3 doses daily (3,000mg).? use cyclobenzaprine/ Flexeril as needed for pain that is unrelieved by acetaminophen. This is a muscle relaxant. This medication may make you drowsy. You should not drive, drink alcohol, or work while taking this medication. Contact your primary care provider to arrange for a follow-up visit. Should your pain persist they may consider a course of physical therapy. Prescriptions: New cyclobenzaprine 10 mg tablet 10 mg PO TID PRN (Reason: muscle spasm) Qty: 20 0RF No Action amlodipine 5 mg tablet 1 tab PO DAILY metformin 1,000 mg tablet 1 tab PO BEDTIME lisinopril 10 mg tablet 1 tab PO DAILY aspirin 81 mg Tablet,Chewable 81 mg PO DAILY rosuvastatin 20 mg tablet 1 tab PO BEDTIME Centrum Silver Men 300-600-300 mcg Tablet 1 tab PO DAILY cefuroxime axetil 250 mg tablet 250 mg PO BID Qty: 8 0RF metronidazole [Flagyl] 500 mg tablet 500 mg PO BID Qty: 8 0RF cephalexin 500 mg capsule 500 mg PO QID 10 Days Qty: 40 0RF Referrals: Jermaine Cardeans MD [Primary Care Provider] - Print Language: Chadian
[2023-10-21 11:09] VITALS: BP 126/60; PULSE 87; RESP 15; TEMP 36.6; O2SAT 98
[2023-10-21 12:00] VITALS: BP 130/70; PULSE 90; RESP 16; TEMP 36.4; O2SAT 99
[2023-10-21] MEDS: Cyclobenzaprine HCl 10 MG TABLET PO (12:09)
[2023-10-21 14:49] VITALS: BP 138/78; PULSE 89; RESP 16; TEMP 36.4; O2SAT 98
[2023-10-21 15:00] VITALS: BP 138/78; PULSE 89; RESP 16; TEMP 36.4; O2SAT 98
== END 2023-10-21 15:01 | disposition home or self-care (01) ==
PROVIDERS: Emergency Provider Emergency Medicine Emergency Medical Services; PCP Internal Medicine
DX: M54.6 Pain in thoracic spine (principal); I10 Essential (primary) hypertension; E11.9 Type 2 diabetes mellitus without complications; Z79.899 Other long term (current) drug therapy
CPT/HCPCS: 72128; 99284

== ENCOUNTER 2024-12-22 18:11 | Emergency (ER) | payer MEDICARE, SELFPAY ==
--- OUTSIDE RECORDS SUMMARY | 2023-09-20 05:06 | XMS_ITS | Continuity of Care Document ---
Author Name [facility] Organization [facility] Care Team Providers Care Candy Mixer Name Role Phone [facility] Unavailable Unavailable Problems Combined list of problems [...] DAILY ORAL ACTIVE AHZIGGYMOH AMMED JAWED 2019 [facility] ASPIRIN 81MG TAB,EC TAKE ONE TABLET BY MOUTH ONCE DAILY ORAL ACTIVE AHMED,MOH AMMED JAWED 2019 [facility] LISINOPRIL 10MG TAB TAKE ONE TABLET BY MOUTH ONCE DAILY ORAL ACTIVE AHMED,MOH AMMED JAWED 2019 [facility] METFORMIN (ONCE DAILY) TAB,SA TAKE 1000MG BY MOUTH ONCE DAILY ORAL ACTIVE AHMED,MOH AMMED JAWED 2019 [facility] ROSUVASTATI N CA 40MG TAB TAKE ONE-HALF TABLET BY MOUTH ONCE DAILY ORAL ACTIVE RA PIETER COVARRUBIAS 2021 [facility] [place] Allergies, Adverse Reactions, Alerts Combined list of allergies from Department of Defense and Veterans Affairs facilities. It does not include entries that were removed or entered in error. Substance Category Reaction Severity Reaction type Status Date Reported Comments Source OPIOID ANALGESICS Propensity to adverse reactions to drug (finding) Low blood pressure, Nausea and vomiting active 0 [facility] [place] [facility] Immunizations Combined list of available immunizations from the Department of Defense and Veterans Affairs facilities. Immunization Series Date Given Administered By Site Reaction Lot Number CVX Code Drug Offset Duplicating Machine Operator Status Comments Source COVID-19 (PFIZER), MRNA, LNP-S, PF, 30 MCG/0.3 ML DOSE 3 2021 208 complet ed [facility] INFLUENZA, UNSPECIFIED FORMULATION 2020 88 complet ed [facility] COVID-19 (PFIZER), MRNA, LNP-S, PF, 30 MCG/0.3 ML DOSE 3 2020 208 complet ed [facility] COVID-19 ([place]), MRNA, LNP-S, PF, 30 MCG/0.3 ML DOSE 2 2020 208 complet ed [facility] [place] [facility] COVID-19 ([place]), MRNA, LNP-S, PF, 30 MCG/0.3 ML DOSE 1 2020 208 complet ed [facility] [place] [facility] INFLUENZA, SEASONAL, INJECTABLE 2018 141 complet [facility] [place] [facility] Encounters Combined list of: 1) Encounters from Department of Veterans Affairs facilities going backup to the last 18 months, not all [place] inpatient encounters are included; 2) Encounters from the Department of [facility] facilities going backup to 280 months. Location Location Details Encounter Type Encounter Number Reason For Visit Attending Provider ADM Date DC Date Status Disposition Source [facility] Outpatient Encounter [id number] 09/19 [facility] Social History Combined list of available smoking, tobacco, and other social history from Department of Defense and Veterans Affairs facilities. Social History Type Response Date Comment Sourc e Tobacco smoking status NHIS VA-TOBACCO USE DECLINED TO ANSWER 11/18/2022 [facility] History of tobacco use VA-TOBACCO NEVER USED 11/17/2021 [facility] History of tobacco use NE-TOBACCO NEVER USED 11/18/2020 [facility] History of tobacco use NE-TOBACCO NEVER USED 06/08/2019 [facility] Advance Directives List of completed, amended, or rescinded Advance Directives on record at Department of [facility] facilities. An actual copy of the Directive is not included. Date Advance Directive Provider Source 06/27/2019 ADVANCE DIRECTIVE LEA STEELE [facility]
--- NOTE | ~2024-12-22 | CT_ITS ---
CLINICAL HISTORY: Painless hematuria R O kidney, bladder mass CT abdomen and pelvis with contrast Comparison: None provided Findings: Right lower lobe atelectasis versus scar. Degenerative change spine and hips. Old mild T12 superior endplate compression. No acute bony abnormalities. Septated cyst in dome of liver. No significant abnormality in liver or spleen. Pancreas and adrenal glands unremarkable. Gallbladder is within normal limits. No significant focal renal abnormalities. No renal stones or hydronephrosis. Prominent bilateral extrarenal pelves. Abdominal aorta is normal in caliber. No free fluid or adenopathy in the pelvis. No diverticulitis. Appendix not identified. Heterogeneous enlarged prostate gland. Prostate impresses on inferior bladder wall. Question left paramidline posterior bladder wall thickening. Differential includes bladder mass versus prostate mass. Impression: No acute process This document has been electronically signed by: Cesar Perea MD on 12/22/2024 21:03:36
[2024-12-22 18:18] VITALS: BP 137/68; PULSE 95; RESP 18; TEMP 36.7; O2SAT 96; BMI 21.0
--- NOTE | 2024-12-22 18:20 | ED.MALEGU ---
HPI - Male Genitourinary General Chief complaint: Urogenital-Male Stated complaint: urine jessy color Time Seen by Provider: 12/22/24 19:38 Source: patient and other (Significant other) Mode of arrival: ambulatory Limitations: no limitations History of Present Illness ED Provider: Dr. Nba Wiggins HPI Narrative: 79-year-old male with a history of diabetes, hyperlipidemia, hypertension, kidney stones, multiple back surgeries, hernia repair, ?kinked ?requiring repair, hernia repair who presents emergency department for evaluation of change in the color of his urine. The patient states that he noticed a dark rest colored urine at around 03:30 hours. He states that he felt that his urine was concentrated and he has been drinking water all day but he continues to have a change in the color of his urine. He denied any frequency, urgency or dysuria. He denied any abdominal pain or flank pain. He states that he may have had a change in the color of his urine in the past. Related Data Home Medications ?Medication ?Instructions ?Recorded ?Confirmed amlodipine 5 mg tablet 1 tab PO DAILY 09/19/20 09/19/20 aspirin 81 mg chewable tablet 81 mg PO DAILY 09/19/20 09/19/20 lisinopril 10 mg tablet 1 tab PO DAILY 09/19/20 09/19/20 metformin 1,000 mg tablet 1 tab PO BEDTIME 09/19/20 09/19/20 ecvpiqcb-dd-wnirn 300 mcg-K 60 1 tab PO DAILY 09/19/20 09/19/20 mcg-lycop 600 mcg-lutein 300 mcg tablet (Centrum Silver Men) rosuvastatin 20 mg tablet 1 tab PO BEDTIME 09/19/20 09/19/20 Previous Rx's ?Medication ?Instructions ?Recorded cefuroxime axetil 250 mg tablet 250 mg PO BID #8 tabs 09/22/20 metronidazole 500 mg tablet 500 mg PO BID #8 tabs 09/22/20 (Flagyl) cephalexin 500 mg capsule 500 mg PO QID 10 days #40 caps 11/25/21 cyclobenzaprine 10 mg tablet 10 mg PO TID PRN muscle spasm #20 10/21/23 tabs Allergies Allergy/AdvReac Type Severity Reaction Status Date / Time codeine AdvReac Intermediate Vomiting Verified 12/22/24 18:20 fentanyl (FENTANYL) AdvReac Intermediate Vomiting Verified 12/22/24 18:20 hydrocodone (Vicodin) AdvReac Intermediate Vomiting Verified 12/22/24 18:20 meperidine (Demerol) AdvReac Intermediate Vomiting Verified 12/22/24 18:20 Opioids-Meperidine and AdvReac Intermediate VOMITING Verified 12/22/24 18:20 Related (OPIOIDS-MEPERIDINE & RELATED) oxycodone AdvReac Intermediate Vomiting Verified 12/22/24 18:20 propoxyphene (From DARVON) AdvReac Intermediate NAUSEA & Verified 12/22/24 18:20 VOMITING tramadol (TRAMADOL) AdvReac Intermediate NAUSEA & Verified 12/22/24 18:20 VOMITING Darvon Allergy Intermediate Vomiting Uncoded 10/21/23 08:55 Darvocet-N 50 AdvReac Intermediate Vomiting Uncoded 10/21/23 08:55 Review of Systems Review of Systems: Yes all other systems are reviewed and are negative [facility] Past Medical History [facility] Narrative: Social history: He denies tobacco, alcohol and drug use. Medical History Cataract Vitreomacular adhesion of left eye Kidney stones Chronic back pain High blood pressure Diabetes Deviated septum Surgical History Hx of vitrectomy H/O rotator cuff surgery S/P hernia surgery Previous back surgery Social History Social History Household Members: None Housing: House Do you presently have visiting nurse or other home services: No Alcohol intake: never Patient Tobacco Use Status: Never used Tobacco service: No Current occupational status: retired Physical Exam Vital Signs: Vital Signs: Last Vital Signs Temp 98.1 F 12/22/24 18:18 Pulse 95 12/22/24 18:18 Resp 18 12/22/24 18:18 BP 137/68 12/22/24 18:18 Pulse Ox 96 12/22/24 18:18 O2 Del Method Room Air 12/22/24 18:18 BMI result Body Mass Index 21.0 Vital signs were normal Exam: General: Awake, alert in no distress Head: Normocephalic, atraumatic EENT: PERRL, Lids normal, sclera normal, conjunctiva normal, nose normal , ears normal, throat without erythema or exudates Neck: Supple, no adenopathy Lung: breath sounds symmetric, no wheezing, rales or rhonchi Chest: symmetric movement, nontender Heart: regular rate and rhythm, normal S1, S2 no murmurs or rubs Abdomen: soft, non-tender, nondistended, normal bowel sounds Back: no vertebral tenderness, no CVAT Extremities: no deformities, moves all extremities symmetrically Neuro: Awake, alert, oriented, normal speech, cranial nerves intact, moves all extremities symmetrically Psych: Pleasant, cooperative Course Course Course Narrative: 12/22/24 182 PATRICK Jolley This is a Rapid Medical Examination (RME) performed by Chidi Neumann PA-C in triage. Full HPI, ROS, assessment and treatment plan per primary provider in the Main ED. Hx: 79 yo M here w/ painless hematuria x today. denies hx of tobacco use. denies abd pain/flank pain. hx of renal stones, states this does not feel similar. reports staying adequately hydrated. has not been out in the heat recently. Plan: labs, UA Medical Decision Making Medical Decision Making MDM Narrative: 79-year-old male with a history of diabetes, hyperlipidemia, hypertension, kidney stones, multiple back surgeries, hernia repair, ?kinked ?requiring repair, hernia repair who presents emergency department for evaluation of change in the color of his urine. The patient states that he noticed a dark rest colored urine at around 03:30 hours. He states that he felt that his urine was concentrated and he has been drinking water all day but he continues to have a change in the color of his urine. He denied any frequency, urgency or dysuria. He denied any abdominal pain or flank pain. He states that he may have had a change in the color of his urine in the past. Vital signs were normal. Physical examination was unremarkable. Differential diagnosis: ?Includes but is not limited to ureteral stone, bladder stone, renal carcinoma, bladder carcinoma, anemia, electrolyte abnormalities, urinary tract infection Course: 21:58 My independent interpretation patient's laboratory evaluation is as follows: Normocytic anemia with an H&H of 12.6 and 36.8. Elevated BUN 33 with a normal creatinine of 1.24 with a GFR of 56. Glucose elevated 184. LFTs were normal. Total bilirubin normal 0.3. Urinalysis positive for blood, leukocyte esterase and glucose. Microscopic revealed 10-20 RBCs, 6-10 WBCs, 6-10 squamous cells, no bacteria. Yeast was present. CT abdomen pelvis with IV contrast revealed no significant abnormalities, there were no renal masses or bladder masses noted. This time I do not have a clear etiology for the patient's hematuria. The patient will be referred to our Neurology group for further workup and evaluation. Admission/Observation Consideration of admission/observation: Escalation of care including admission/observation considered (Yes) Lab Data MDM Lab Attestation statement: I reviewed the patient's lab results. 12/22/24 18:33 12/22/24 18:33 Labs: Lab Results 12/22/24 Range/Units 18:33 WBC 8.4 (4.8-10.8) X10*3/uL RBC 3.90 L (4.60-5.80) X10*6/uL Hgb 12.6 L (14.0-18.0) g/dl Hct 36.8 L (42.0-52.0) % MCV 94.4 (80.0-98.0) fL MCH 32.3 (27.0-33.0) pg MCHC 34.2 (31.0-36.0) g/dl RDW 13.2 (11.0-16.0) % Plt Count 238 D (160-400) X10*3/uL MPV 10.7 (9.4-12.4) fL Immature Gran % (Auto) 0.2 (0.0-0.4) % Neut % (Auto) 64.5 (45-73) % Lymph % (Auto) 21.4 (20-40) % Cross % (Auto) 12.9 H (2-11) % Eos % (Auto) 0.4 (0-4) % Baso % (Auto) 0.6 (0-2) % Lymph # (Auto) 1.8 (1.2-4.9) X10*3/uL Cross # (Auto) 1.1 (0.1-1.2) X10*3/uL Eos # (Auto) 0.0 (0.0-0.4) X10*3/uL Baso # (Auto) 0.1 (0.0-0.2) X10*3/uL Abs Immat Gran (auto) 0.02 (0.00-0.03) X10*3/uL Absolute Neuts (auto) 5.4 (2.0-8.3) x10*3/uL Absolute Nucleated RBC 0.000 (0.0-0.012) X10*3/uL Nucleated RBC % (auto) 0.0 (0.0-0.2) /100WBC Sodium 139 (135-145) mmol/L Potassium 4.8 (3.3-5.1) mmol/L Chloride 107 (96-108) mmol/L Carbon Dioxide 23 (22-29) mmol/L Anion Gap 14 (12-20) BUN 33 H (9-16) mg/dL Creatinine 1.24 (0.5-1.4) mg/dL Estim Creat Clear Calc 44.7 Estimated GFR 56 Random Glucose 184 H (60-115) mg/dL Calcium 9.9 D (8.4-10.2) mg/dL Magnesium 1.7 (1.6-2.6) mg/dL Total Bilirubin 0.3 (0.0-1.0) mg/dL AST 18 (5-37) U/L ALT 21 (0-40) U/L Alkaline Phosphatase 51 (39-117) U/L Total Creatine Kinase 52 (38-174) U/L Total Protein 7.3 (6.5-8.0) g/dL Albumin 4.7 (3.5-5.0) g/dL Urine Color Haywood A Urine Appearance Turbid Urine pH 5.5 (5.0-9.0) Ur Specific [place] 1.025 (1.005-1.025) Urine Protein See Note (Neg-Trace) mg/dL Urine Glucose (UA) 500 H (Negative) mg/dL Urine Ketones Negative (Negative) mg/dL Urine Blood Moderate (2+) H (Negative) Urine Nitrite Negative (Negative) Ur Leukocyte Esterase Small (1+) H (Negative) Urine RBC 11-20 H (0-2) /HPF Urine WBC 6-10 H (0-5) /HPF Ur Squamous Epith Cells 6-10 (0-2) /HPF Urine Bacteria None Seen (None Seen) Hyaline Casts 0-2 (0-2) /LPF Urine Yeast Present Radiology Impression Discussion of test interpretation with radiology: I have reviewed the radiologist's reading. Radiologist Impression: CT abdomen and pelvis with contrast Comparison: None provided Findings: Right lower lobe atelectasis versus scar. Degenerative change spine and hips. Old mild T12 superior endplate compression. No acute bony abnormalities. Septated cyst in dome of liver. No significant abnormality in liver or spleen. Pancreas and adrenal glands unremarkable. Gallbladder is within normal limits. No significant focal renal abnormalities. No renal stones or hydronephrosis. Prominent bilateral extrarenal pelves. Abdominal aorta is normal in caliber. No free fluid or adenopathy in the pelvis. No diverticulitis. Appendix not identified. Heterogeneous enlarged prostate gland. Prostate impresses on inferior bladder wall. Question left paramidline posterior bladder wall thickening. Differential includes bladder mass versus prostate mass. Impression: No acute process This document has been electronically signed by: Cesar Perea MD on 12/22/2024 21:03:36 Independent Historian Clinical information obtained from an independent historian. History obtained from or confirmed by: Other (Friend) Chronic Conditions Patient?s care impacted by: Diabetes, Hypertension and Other (Hyperlipidemia) Discharge Plan Discharge Clinical Impression: Painless hematuria Patient Disposition: Home, Self-Care Additional Instructions: Your blood work today was unchanged from your previous laboratory tests and did not reveal a clear cause for the change in the color of the urine. Your urine studies did reveal red blood cells in your urine which most likely cause the change in the color of the urine. You do have some white blood cells in urine which can sometimes go along with an infection but you have no bacteria in your urine. The lab will try to grow bacteria out of your urine and if it is positive for bacteria we will contact you and discuss whether or not you need to be on an antibiotic. I do not think that you need an antibiotic at this time. The CT scan of your abdomen pelvis with IV contrast did not reveal any tumors of your kidney or bladder. Sometimes blood in the urine can be caused by bladder cancer therefore I am referring you to our urologist so that they can evaluate you and decide if you need any further treatment. [facility] will be contacting you within 2 business?days after being discharged from the Emergency?Department.? During this?phone call, they will inform you when your follow up appointment will be scheduled. If you have not received a call from [facility] after 2 business?days, please call the?office at [phone]. Follow-up with your doctor in 2 days. Please return to the emergency department if your symptoms get worse or if you develop any symptoms that are concerning to you. Prescriptions: No Action amlodipine 5 mg tablet 1 tab PO DAILY metformin 1,000 mg tablet 1 tab PO BEDTIME lisinopril 10 mg tablet 1 tab PO DAILY aspirin 81 mg Tablet,Chewable 81 mg PO DAILY rosuvastatin 20 mg tablet 1 tab PO BEDTIME Centrum Silver Men 300-600-300 mcg Tablet 1 tab PO DAILY cefuroxime axetil 250 mg tablet 250 mg PO BID Qty: 8 0RF metronidazole [Flagyl] 500 mg tablet 500 mg PO BID Qty: 8 0RF cephalexin 500 mg capsule 500 mg PO QID 10 Days Qty: 40 0RF cyclobenzaprine 10 mg tablet 10 mg PO TID PRN (Reason: muscle spasm) Qty: 20 0RF Referrals: Jin Tubbs MD [Physician, Urology] Referral Note: Painless hematuria, BUN and creatinine 33 and 1.24 with GFR of 56, microscopic 10-20 RBCs, 6-10 WBCs, no bacteria. Print Language: Bahamian
[2024-12-22 18:43] LABS: MANUAL DIFF FLAG NO
[2024-12-22 18:45] LABS: Hematocrit 36.8 % (42.0-52.0); Hemoglobin 12.6 g/dl (14.0-18.0); Imm Gran Abs Auto 0.02 X10*3/uL (0.00-0.03); Imm Gran Pct Auto 0.2 % (0.0-0.4); Lymphocytes Absolute Auto 1.8 X10*3/uL (1.2-4.9); Mean Corpuscular HGB Conc 34.2 g/dl (31.0-36.0); Mean Corpuscular Hemoglobin 32.3 pg (27.0-33.0); Mean Corpuscular Volume 94.4 fL (80.0-98.0); NRBC Abs Auto 0.000 X10*3/uL (0.0-0.012); NRBC Pct Auto 0.0 /100WBC (0.0-0.2); Platelet Count 238 X10*3/uL (160-400); Red Blood Count 3.90 X10*6/uL (4.60-5.80); White Blood Count 8.4 X10*3/uL (4.8-10.8)
[2024-12-22 19:00] LABS: Alanine Aminotransferase 21 U/L (0-40); Albumin Level 4.7 g/dL (3.5-5.0); Alkaline Phosphatase 51 U/L (39-117); Anion Gap 14 (12-20); Aspartate Amino Transferase 18 U/L (5-37); Blood Urea Nitrogen 33 mg/dL (9-16); Calcium 9.9 mg/dL (8.4-10.2); Carbon Dioxide 23 mmol/L (22-29); Chloride 107 mmol/L (96-108); Creatinine Clr Calc Pharmacy 44.7; Estimated Glomerular Filt Rate 56; Magnesium 1.7 mg/dL (1.6-2.6); Potassium 4.8 mmol/L (3.3-5.1); Sodium 139 mmol/L (135-145); Total Protein 7.3 g/dL (6.5-8.0)
[2024-12-22 19:04] LABS: Appearance Urine Turbid; Glucose Urine UA 500 mg/dL (Negative); PH 5.5 (5.0-9.0); Specific Gravity - Urine 1.025 (1.005-1.025); UMIC TRIGGER UACC YES
[2024-12-22 19:05] LABS: UACC Culture Trigger YES
--- OUTSIDE RECORDS SUMMARY | 2024-12-22 19:42 | XMS_ITS | Clinical Summary ---
Author Organization [employer] Address [address] [place] [address] Care Team Providers Care Psych Therapist Name Role Phone Unavailable Primary Care Provider Unavailabl e Social History Tobacco Use Types Packs/Day Years Used Date Smoking Tobacco: Never Assessed Sex and Gender Information Value Date Recorded Sex Assigned at Male 03/29/2022 10:30 AM EDT Legal Sex Male 10:30 AM EDT Gender Identity Male 03/29/2022 10:30 AM EDT Sexual Orientation Straight 03/29/2022 10 :30 AM EDT Plan of Treatment Health Maintenance Due Date Last Done Comments Depression Screening 1945 Lipid Panel 1946 Alcohol/Substance Use Screening 1958 Tobacco Screening 1958 DTaP/Tdap/Td Vaccines (1 - Tdap) 1965 Pneumococcal Vaccine: 50+ Ye ars (1 of 1 - PCV) 1996 Zoster Vaccines (1 of 2) 1996 RSV Patients and Pa tients Aged 60 years or older (1 - 1-dose 75+ series) 2021 COVID-19 Vaccine ( - 2023-2 5 season) 2024 Influenza Vaccine (#1) 2025 HIB Vaccines Aged Out No longer eligi ble based on patient's age to complete this topic HPV Vaccines Aged Out No longer eligi ble based on patient's age to complete this topic Hepatitis A Vaccines Aged Out No long er eligible based on patient's age to complete this topic Hepatitis B Vaccines Aged Out No long er eligible based on patient's age to complete this topic IPV Vaccines Aged Out No longer eligi ble based on patient's age to complete this topic Meningococcal B Vaccine Aged Out No l onger eligible based on patient's age to complete this topic Meningococcal Vaccine Aged Out No camryn monica eligible based on patient's age to complete this topic RSV under 20 months Aged Out No longe r eligible based on patient's age to complete this topic Rotavirus Vaccines Aged Out No longer eligible based on patient's age to complete this topic
[2024-12-22] MEDS: iohexoL 350 MG/ML 100 ML INFUS..BTL 85 ML IV (20:30)
[2024-12-22 20:57] VITALS: BP 136/63; PULSE 87; RESP 16; O2SAT 98
[2024-12-22 22:00] VITALS: BP 136/63; PULSE 87; RESP 16; TEMP 36.1; O2SAT 98
== END 2024-12-22 22:00 | disposition home or self-care (01) ==
PROVIDERS: Physician Assistant Medical; Emergency Provider Emergency Medicine Emergency Medical Services; PCP Internal Medicine
DX: R31.9 Hematuria, unspecified (principal)
CPT/HCPCS: 36415; 74177; 80053; 81001; 81003; 82550; 83735; 85025; 87086; 96360; 99284; Q9967

== ENCOUNTER → 2024-12-22 19:48 | Outpatient (BNV) | payer MEDICARE, SELFPAY | PROVIDERS: Emergency Provider Emergency Medicine Emergency Medical Services; PCP Internal Medicine; Visit Provider Radiology Diagnostic Radiology | DX: R31.21 Asymptomatic microscopic hematuria (principal) | CPT/HCPCS: 74177 ==

== ENCOUNTER 2025-01-29 10:30 | Outpatient (AMB) | payer MEDICARE, SELFPAY ==
--- OUTSIDE RECORDS SUMMARY | 2023-09-20 05:06 | XMS_ITS | Continuity of Care Document ---
Author Name [facility] Organization [facility] Care Team Providers Care Vocational Nursing Instructor Name Role Phone [facility] Unavailable Unavailable Problems Combined list of problems from Department of Defense and Veterans Affairs facilities. It does not include entries that were removed or entered in error. 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 Medication Details Route Status Patient Instructions Prescription Expires Prescription Number Last Dispense Date Ordering Provider Order Date Order Qty Source AMLODIPINE BESYLATE 5MG TAB TAKE ONE TABLET BY MOUTH ONCE DAILY ORAL ACTIVE AHZIGGYMOH AMMED JAWED 2019 [facility] ASPIRIN 81MG TAB,EC TAKE ONE TABLET BY MOUTH ONCE DAILY ORAL ACTIVE AHMED,MOH AMMED JAWED 2019 [facility] LISINOPRIL 10MG TAB TAKE ONE TABLET BY MOUTH ONCE DAILY ORAL ACTIVE AHMED,MOH AMMED JAWED 2019 [facility] METFORMIN (ONCE DAILY) TAB,SA TAKE 1000MG BY MOUTH ONCE DAILY ORAL ACTIVE AHMED,MOH AMMED JAWED 2019 [facility] [place] ROSUVASTATI N CA 40MG TAB TAKE ONE-HALF TABLET BY MOUTH ONCE DAILY ORAL ACTIVE RA PIETER COVARRUBIAS 2021 [facility] [place] [facility] Allergies, Adverse Reactions, Alerts Combined list of allergies from Department of Defense and Veterans Affairs facilities. It does not include entries that were removed or entered in error. Substance Category Reaction Severity Reaction type Status Date Reported Comments Source OPIOID ANALGESICS Propensity to adverse reactions to drug (finding) Low blood pressure, Nausea and vomiting active 0 [place] [facility] [place] [facility] Immunizations Combined list of available immunizations from the Department of Defense and Veterans Affairs facilities. Immunization Series Date Given Administered By Site Reaction Lot Number CVX Code Drug Exerciser Status Comments Source COVID-19 (PFIZER), MRNA, LNP-S, PF, 30 MCG/0.3 ML DOSE 3 2021 208 complet ed [facility] INFLUENZA, UNSPECIFIED FORMULATION 2020 88 complet ed [facility] COVID-19 (PFIZER), MRNA, LNP-S, PF, 30 MCG/0.3 ML DOSE 3 2020 208 complet ed [facility] COVID-19 ([facility]), MRNA, LNP-S, PF, 30 MCG/0.3 ML DOSE 2 2020 208 complet ed [facility] [place] [place] [facility] COVID-19 ([facility]), MRNA, LNP-S, PF, 30 MCG/0.3 ML DOSE 1 2020 208 complet [facility] [place] [facility] INFLUENZA, SEASONAL, INJECTABLE 2018 141 complet [facility] [employer] [facility] [facility] Encounters Combined list of: 1) Encounters from Department of Veterans Affairs facilities going backup to the last 18 months, not all [place] inpatient encounters are included; 2) Encounters from the Department of [facility] facilities going backup to 280 months. Location Location Details Encounter Type Encounter Number Reason For Visit Attending Provider ADM Date DC Date Status Disposition Source [facility] [facility] Out[facility] Encounter [id number] [facility] Social History Combined list of available smoking, tobacco, and other social history from Department of Defense and Veterans Affairs facilities. Social History Type Response Date Comment Sourc e Tobacco smoking status NHIS VA-TOBACCO USE DECLINED TO ANSWER 11/18/2022 [facility] History of tobacco use VA-TOBACCO NEVER USED 11/17/2021 [facility] History of tobacco use PA-TOBACCO NEVER USED 11/18/2020 [facility] History of tobacco use PA-TOBACCO NEVER USED 06/08/2019 [facility] Advance Directives List of completed, amended, or rescinded Advance Directives on record at Department of [facility] facilities. An actual copy of the Directive is not included. Date Advance Directive Provider Source 06/27/2019 ADVANCE DIRECTIVE LEA STEELE [facility]
--- NOTE | 2025-01-29 10:42 | A.OFFVIS_ITS ---
Intake Visit Reasons: hematuria Intake Note: PT PRESENTS TODAY FOR: NEW PT HEMATURIA UROLOGY MEDICATIONS: NONE BLOOD THINNERS: NONE Advertising Executive Required: No Accompanied by: Self / Same As Patient Allergies codeine Adverse Reaction (Intermediate, Verified 01/29/25 10:44) Vomiting fentanyl (FENTANYL) Adverse Reaction (Intermediate, Verified 01/29/25 10:44) Vomiting hydrocodone (Vicodin) Adverse Reaction (Intermediate, Verified 01/29/25 10:44) Vomiting meperidine (Demerol) Adverse Reaction (Intermediate, Verified 01/29/25 10:44) Vomiting Opioids-Meperidine and Related (OPIOIDS-MEPERIDINE & RELATED) Adverse Reaction (Intermediate, Verified 01/29/25 10:44) VOMITING oxycodone Adverse Reaction (Intermediate, Verified 01/29/25 10:44) Vomiting propoxyphene (From DARVON) Adverse Reaction (Intermediate, Verified 01/29/25 10:44) NAUSEA & VOMITING tramadol (TRAMADOL) Adverse Reaction (Intermediate, Verified 01/29/25 10:44) NAUSEA & VOMITING Darvon Allergy (Intermediate, Uncoded 01/29/25 10:44) Vomiting Darvocet-N 50 Adverse Reaction (Intermediate, Uncoded 01/29/25 10:44) Vomiting HPI Comments Details: Migel is a pleasant male. He is a patient of Dr. Cardenas. He seen for the following urologic conditions. - gross hematuria Plan office cystoscopy Imaging - CT scan 12/21 upper tract normal, markedly enlarged prostate Workplace exposures none Was in the in the 1960s stationed in [facility] Medical History Cataract Vitreomacular adhesion of left eye Kidney stones Chronic back pain High blood pressure Diabetes Deviated septum Surgical History Hx of vitrectomy H/O rotator cuff surgery S/P hernia surgery Previous back surgery Social History Household Members: None Housing: House Do you presently have visiting nurse or other home services: No Alcohol intake: never Patient Tobacco Use Status: Never used Tobacco service: No Current occupational status: retired Review of Systems Const Denies chills and Denies fever(s) Card Reports no additional complaints and Denies syncope Resp Denies cough GI Denies abdominal pain and Denies heartburn Reports as per HPI and Denies change in libido Neuro Denies syncope Psych Denies change in libido Endo Denies change in libido Physical Exam Const General: cooperative, healthy appearing, comfortable and no acute distress Orientation/consciousness: patient oriented x3 HEENT Face and sinus: Yes normal facial exam Mouth: moist mucous membranes Neck Neck: Yes normal visual inspection, Yes full ROM and Yes trachea midline Chest Chest palpation & inspection: normal inspection of the chest Resp Effort & Inspection: normal respiratory effort, able to speak in complete sentences and no respiratory distress GI Inspection: Yes normal to inspection Back/Spine/Pelvis Cervical Spine: normal cervical lordosis Thoracic/Lumbar Spine: thoracic and lumbar spine normal to inspection Skin General skin exam: no rashes or lesions noted Neuro General: patient oriented x3, gait normal, tone normal and moves all extremities Extrem General: Yes normal to inspection and Yes capillary refill normal Results AMB Urinalysis, Automated UA Leukoctes 0 Radha/uL Last Edit by FELIX Paulson on 01/29/25 10:55 UA Nitrite Negative Last Edit by FELIX Paulson on 01/29/25 10:55 UA Urobilinogen 3.5 mg/dL Last Edit by FELIX Paulson on 01/29/25 10:5 5 UA Protein 0 mg/dL Last Edit by FELIX Paulson on 01/29/25 10:55 UA pH 5.5 Last Edit by FELIX Paulson on 01/29/25 10:55 UA Blood 0 Gavin/uL Last Edit by FELIX Paulson on 01/29/25 10:55 UA Specific [place] 1.015 Last Edit by FELIX Paulson on 01/29/25 10: 55 UA Ketone Negative Last Edit by FELIX Paulson on 01/29/25 10:55 UA Bilirubin 0 mg/dL Last Edit by FELIX Paulson on 01/29/25 10:55 UA Glucose 0 mg/dL Last Edit by FELIX Paulson on 01/29/25 10:55 Results Reviewed Results Reviewed: Laboratory Last Values Urine pH (Auto) 5.5 01/29/25 10:55 Specific [place] (Auto) 1.015 01/29/25 10:55 Urine Protein (Auto) 0 mg/dL 01/29/25 10:55 Glucose (UA)(Auto) 0 mg/dL 01/29/25 10:55 Urine Ketones (Auto) Negative 01/29/25 10:55 Urine Blood (Auto) 0 Gavin/uL 01/29/25 10:55 Urine Nitrite (Auto) Negative 01/29/25 10:55 Urine Bilirubin (Auto) 0 mg/dL 01/29/25 10:55 Urine Urobilinogen (Auto) 3.5 mg/dL 01/29/25 10:55 Leukocyte Esterase (Auto) 0 Radha/uL 01/29/25 10:55 Assessment & Plan Assessment & Plan (1) Gross hematuria: Code(s): R31.0 - Gross hematuria Category: Medical Plan Office cystoscopy Orders: Orders AMB Urinalysis Automated Today Z13.9 - Encounter for screening, unspecified Patient Instructions: This note is constructed using voice recognition software. While every effort has been made to ensure accuracy food service sales representatives errors may have been included. Imaging studies, laboratory and physical exam results were discussed and reviewed in detail. No major barriers to patient understanding were identified. An opportunity to ask questions regarding the treatment plan was provided. All questions were answered. The patient expressed understanding and agreement with the above treatment plan. The patient is aware they should contact our office by phone for worsening of their current condition or the appearance of new urologic symptoms. Compliance is encouraged with any medications and followup testing that is ordered. It is a privilege to participate in the urologic care of your patient. If you have any questions or concerns regarding treatment for the above conditions, or other urologic issues, please do not hesitate to contact me. The office telephone contact is [phone]. Sincerely, Dr Kenrick Koenig MD, [facility] - Urology Compassionate Specialist Care for the Genitourinary System Coding Level of Care Code New Pt Level 4 (47450) Diagnoses Gross hematuria R31.0
--- OUTSIDE RECORDS SUMMARY | 2025-01-29 12:03 | XMS_ITS | Encounter Summary ---
Author Organization [employer] Address [address] [place] [address] Care Team Providers Care Beef Cattle Specialist Name Role Phone Unavailable Primary Care Provider Unavailabl e Encounter Details Date Type Department Care Team (Latest Contact Info) Description 08/25/2018 Abstract C CONVERSIONS Dental, Provider, DDS Social History Tobacco Use Types Packs/Day Years Used Date Smoking Tobacco: Never Assessed Sex and Gender Information Value Date Recorded Sex Assigned at Male 03/29/2022 10:30 AM EDT Legal Sex Male 10:30 AM EDT Gender Identity Male 03/29/2022 10:30 AM EDT Sexual Orientation Straight 03/29/2022 10 :30 AM EDT documented as of this encounter Plan of Treatment Not on file documented as of this encounter Visit Diagnoses Not on filedocumented in this encounter
--- OUTSIDE RECORDS SUMMARY | 2025-01-29 12:03 | XMS_ITS | Clinical Summary ---
Author Organization [employer] Address [address] [place] [address] Care Team Providers Care Repairer Handtools Name Role Phone Unavailable Primary Care Provider [...]
== END 2025-01-29 11:25 | disposition home or self-care (01) ==
LOC: HO.HUSH 10:31
PROVIDERS: PCP Internal Medicine; Visit Provider Urology
DX: Z13.9 Encounter for screening, unspecified (principal); R31.0 Gross hematuria
CPT/HCPCS: 99204

== ENCOUNTER → 2025-01-29 10:30 | Outpatient (BNVA) | payer MEDICARE, SELFPAY | PROVIDERS: PCP Internal Medicine; Visit Provider Urology | DX: R41.9 Unspecified symptoms and signs involving cognitive functions and awareness (principal); Z13.9 Encounter for screening, unspecified | CPT/HCPCS: 81003; 99202 ==

== ENCOUNTER 2025-03-20 08:39 | Outpatient (AMB) | payer MEDICARE, SELFPAY ==
--- NOTE | 2025-03-20 08:49 | A.OFFVIS_ITS ---
Intake Visit Reasons: cysto Intake Note: PT PRESENTS TODAY FOR: cystoscopy UROLOGY MEDICATIONS: NONE BLOOD THINNERS: NONE Peoplesoft Taleo Manager Required: No Accompanied by: Self / Same As Patient Allergies codeine Adverse Reaction (Intermediate, Verified 03/20/25 08:49) Vomiting fentanyl (FENTANYL) Adverse Reaction (Intermediate, Verified 03/20/25 08:49) Vomiting hydrocodone (Vicodin) Adverse Reaction (Intermediate, Verified 03/20/25 08:49) Vomiting meperidine (Demerol) Adverse Reaction (Intermediate, Verified 03/20/25 08:49) Vomiting Opioids-Meperidine and Related (OPIOIDS-MEPERIDINE & RELATED) Adverse Reaction (Intermediate, Verified 03/20/25 08:49) VOMITING oxycodone Adverse Reaction (Intermediate, Verified 03/20/25 08:49) Vomiting propoxyphene (From DARVON) Adverse Reaction (Intermediate, Verified 03/20/25 08:49) NAUSEA & VOMITING tramadol (TRAMADOL) Adverse Reaction (Intermediate, Verified 03/20/25 08:49) NAUSEA & VOMITING Darvon Allergy (Intermediate, Uncoded 03/20/25 08:49) Vomiting Darvocet-N 50 Adverse Reaction (Intermediate, Uncoded 03/20/25 08:49) Vomiting HPI Comments Details: Migel is a pleasant male. He is a patient of Dr. Cardenas. He seen for the following urologic conditions. - gross hematuria Here for office cystoscopy BPH with significant median lobe Multiple small 1 cm bladder tumors posterior wall to dome of bladder Plan GreenLight laser plus TURBT Gross hematuria Imaging - CT scan 12/21 upper tract normal, markedly enlarged prostate Workplace exposures none Was in the in the stationed in [facility] Medical History Cataract Vitreomacular adhesion of left eye Kidney stones Chronic back pain High blood pressure Diabetes Deviated septum Surgical History Hx of vitrectomy H/O rotator cuff surgery S/P hernia surgery Previous back surgery Social History Household Members: None Housing: House Do you presently have visiting nurse or other home services: No Alcohol intake: never Patient Tobacco Use Status: Never used Tobacco service: No Current occupational status: retired Office Procedures Cystoscopy Consent Discussed risk and benefit or proposed procedure with the patient. Information consent for procedure given to the patient. Discussed technical aspects, risks, benefits and alternatives in full. Addressed all of the patient's questions and concerns regarding the procedure. The patient demonstrated knowledge and understanding. They wish to proceed with this procedure. Preparation The patient was prepped in the usual manner. A middle school art teacher was present and in the room. Genitalia was prepped with betadine solution in a sterile manner. Lidocaine Jelly 2% was placed into the urethra and 16Fr flexible Olympus cystoscope was inserted into the meatus after adequate lubrication. Procedure Cystoscopy performed using a disposable Urovue digital 16 Algerian cystoscope. Meatus circumcised Urethra anterior and posterior urethra normal Prostatic Urethra trilobar hyperplasia with large median lobe Bladder examination with retroflexion of cystoscope Bladder Orifices normal shape and position Bladder Capacity Normal Trabeculations grade 1/2 Cellule Formation small Diverticulum Formation None Mucosal Erythema None Bladder Tumor 3-0 visible 1 cm lesions posterior wall to dome [id number] DISPOSABLE SCOPE URO-G FLEXIBLE SCOPE Procedure code (CPT) selection complete Office Meds lidocaine HCl 2 % mucosal jelly in applicator Performing Provider: Kenrick Koenig MD Performing Location: [facility] [place] [facility] Administered by: Talya Alfaro RN on 03/20/25 09:09 Dose Route Admin Location Dispensed Lot Number Expiration Date ND Clinical Documentation Consultant 10 mL intra-urethral 10 mL nitrofurantoin monohydrate/macrocrystals 100 mg capsule Performing Provider: Kenrick Koenig MD Performing Location: [facility] [place] [facility] Administered by: Talya Alfaro RN on 03/20/25 09:09 Dose Route Admin Location Dispensed Lot Number Expiration Date ND Clinical Documentation Consultant 100 mg PO 1 cap Results AMB Urinalysis, Automated UA Leukoctes 0 Radha/uL Last Edit by FELIX Paulson on 03/20/25 09:07 UA Nitrite Last Edit by FELIX Paulson on 03/20/25 09:07 UA Urobilinogen 0.2 mg/dL Last Edit by FELIX Paulson on 03/20/25 09:0 7 UA Protein 15 mg/dL Last Edit by FELIX Paulson on 03/20/25 09:07 UA pH 5.5 Last Edit by FELIX Paulson on 03/20/25 09:07 UA Blood 0 Gavin/uL Last Edit by FELIX Paulson on 03/20/25 09:07 UA Specific [place] 1.015 Last Edit by FELIX Paulson on 03/20/25 09: 07 UA Ketone Last Edit by FELIX Paulson on 03/20/25 09:07 UA Bilirubin 0 mg/dL Last Edit by FELIX Paulson on 03/20/25 09:07 UA Glucose 0 mg/dL Last Edit by FELIX Paulson on 03/20/25 09:07 Results Reviewed Results Reviewed: Laboratory Last Values Urine pH (Auto) 5.5 03/20/25 09:07 Specific [place] (Auto) 1.015 03/20/25 09:07 Urine Protein (Auto) 15 mg/dL 03/20/25 09:07 Glucose (UA)(Auto) 0 mg/dL 03/20/25 09:07 Urine Blood (Auto) 0 Gavin/uL 03/20/25 09:07 Urine Bilirubin (Auto) 0 mg/dL 03/20/25 09:07 Urine Urobilinogen (Auto) 0.2 mg/dL 03/20/25 09:07 Leukocyte Esterase (Auto) 0 Radha/uL 03/20/25 09:07 Assessment & Plan Assessment & Plan (1) Primary bladder malignant neoplasm: Code(s): C67.9 - Malignant neoplasm of bladder, unspecified Category: Medical (2) Bladder outlet obstruction: Code(s): N32.0 - Bladder-neck obstruction Category: Medical Plan Superficial bladder cancer Transurethral resection of bladder tumor with/without adjuvant cytotoxic bladder installation We discussed the nature of the decision and reasonable options for performing the above surgery. Interventions include TURBT with or without intravesical administration of immunotherapy or cytotoxic medication. The relative uncertainties and benefits related to each alternate procedure were adequately discussed. General surgical risks including, but not limited to, pain, bleeding, infection, myocardial infarction, pulmonary embolus, deep vein thrombosis and cerebrovascular accident which may result in further hospitalization were discussed. Full disclosure of the procedure as well as all major risks, benefits and complications were discussed including but not limited to damage to the urethra or bladder neck, need for ureteric stenting, perforation of the bladder, chemical cystitis, chemical peritonitis, epididymitis, and meatal stenosis. The success rate of the procedure was discussed. Success of the procedure in the short-term does not necessarily guarantee that long-term success will be maintained. Suitable follow up will need to be maintained. The patient showed understanding of discussion and wishes to proceed as above. Bladder outlet obstruction We discussed the nature of the decision and reasonable options for performing a prostate intervention. Interventions include TURP, GreenLight laser enucleation of the prostate, GreenLight laser ablation of the prostate, transurethral incision of the prostate, and I-Tend prostate procedure. Options such as medical therapy were discussed. The relative uncertainties and benefits related to each alternate procedure were adequately discussed. General surgical risks including, but not limited to, pain, bleeding, infection, myocardial infarction, pulmonary embolus, deep vein thrombosis and cerebrovascular accident which may result in further hospitalization were discussed. Full disclosure of the procedure as well as all major risks, benefits and complications were discussed including but not limited to damage to the urethra or bladder neck, recurrent BPH, retrograde ejaculation, bladder infection, urge, de delroy frequency, incomplete emptying, dysuria, remote chance of erectile dysfunction, epididymitis, and meatal stenosis. The success rate of the procedure was discussed. Success of the procedure in the short-term does not necessarily guarantee that long-term success will be maintained. Suitable follow up will need to be maintained. The patient showed understanding of discussion. An opportunity was provided for questions to be answered and wishes to proceed with the following procedure. - GreenLight laser Orders: Orders AMB Cystoscopy Today R31.0 - Gross hematuria AMB Urinalysis Automated Today Z13.9 - Encounter for screening, unspecified Medications: New finasteride 5 mg PO DAILY 90 tabs 1RF 90 days R31.0 - Gross hematuria tamsulosin (Flomax) 0.4 mg PO BEDTIME 30 tabs 3RF 30 days R31.0 - Gross hematuria Patient Instructions: This note is constructed using voice recognition software. While every effort has been made to ensure accuracy welding machine operator electro gas errors may have been included. Imaging studies, laboratory and physical exam results were discussed and reviewed in detail. No major barriers to patient understanding were identified. An opportunity to ask questions regarding the treatment plan was provided. All questions were answered. The patient expressed understanding and agreement with the above treatment plan. The patient is aware they should contact our office by phone for worsening of their current condition or the appearance of new urologic symptoms. Compliance is encouraged with any medications and followup testing that is ordered. It is a privilege to participate in the urologic care of your patient. If you have any questions or concerns regarding treatment for the above conditions, or other urologic issues, please do not hesitate to contact me. The office telephone contact is [phone]. Sincerely, Dr Kenrick Koenig MD, [facility] - Urology Compassionate Specialist Care for the Genitourinary System Coding Level of Care Code Est Pt Level 4 (56570) Complex EM visit Add On G2211 Diagnoses Primary bladder malignant neoplasm C67.9 Bladder outlet obstruction N32.0 CPT Codes Cystoscopy - CPT: [id number] ([id number])
--- OUTSIDE RECORDS SUMMARY | 2025-03-20 09:07 | XMS_ITS | Encounter Summary ---
Author Organization [employer] Address [address] [place] [address] Care Team Providers Care Nib Adjuster Name Role Phone Unavailable Primary Care Provider [...]
--- OUTSIDE RECORDS SUMMARY | 2025-03-20 09:07 | XMS_ITS | Clinical Summary ---
Author Organization [employer] Address [address] [place] [address] Care Team Providers Care Glue Maker Bone Name Role Phone Unavailable Primary Care Provider [...] COVID-19 Vaccine ( - 2023-2 5 season) 2025 Influenza Vaccine (#1) 2025 HIB Vaccines Aged [...]
== END 2025-03-20 09:35 | disposition home or self-care (01) ==
LOC: HO.HUSH 08:40
PROVIDERS: PCP Internal Medicine; Visit Provider Urology
DX: C67.9 Malignant neoplasm of bladder, unspecified (principal); N32.0 Bladder-neck obstruction; R31.0 Gross hematuria
CPT/HCPCS: 52000; 99214

== ENCOUNTER → 2025-03-20 08:39 | Outpatient (BNVA) | payer MEDICARE, SELFPAY | PROVIDERS: PCP Internal Medicine; Visit Provider Urology | DX: C67.9 Malignant neoplasm of bladder, unspecified (principal); N32.0 Bladder-neck obstruction | CPT/HCPCS: 52000; 81003; 99212 ==

== ENCOUNTER 2025-03-27 16:01 | Outpatient (REF) | payer MEDICARE, SELFPAY ==
[2025-03-27 17:44] LABS: Appearance Urine Clear; Glucose Urine UA 250 mg/dL (Negative); PH 5.5 (5.0-9.0); Specific Gravity - Urine 1.015 (1.005-1.025); UMIC TRIGGER UA YES
--- OUTSIDE RECORDS SUMMARY | 2025-03-27 20:05 | XMS_ITS | Clinical Summary ---
Author Organization [employer] Address [address] [place] [address] Care Team Providers Care Pricing Coordinator Name Role Phone Unavailable Primary Care Provider [...]
--- OUTSIDE RECORDS SUMMARY | 2025-03-27 20:05 | XMS_ITS | Encounter Summary ---
Author Organization [employer] Address [address] [place] [address] Care Team Providers Care Machine Heel Seat Fitter Name Role Phone Unavailable Primary Care Provider [...]
== END 2025-03-27 16:02 | disposition home or self-care (01) ==
LOC: HO.LAB 16:01
PROVIDERS: PCP Internal Medicine; Visit Provider Nurse Practitioner Family
DX: N32.0 Bladder-neck obstruction (principal); R31.0 Gross hematuria
CPT/HCPCS: 81001; 87086

== ENCOUNTER 2025-05-10 10:22 | Emergency (ER) | payer MEDICARE, SELFPAY ==
[2025-05-10 10:31] VITALS: BP 130/67; PULSE 96; RESP 18; TEMP 36.3; O2SAT 99; BMI 20.9
--- NOTE | 2025-05-10 10:33 | ED.GENADULT ---
HPI - General Adult General Chief complaint: Back Pain/Injury Stated complaint: Back Pain No Injury Time Seen by Provider: 05/10/25 12:57 History of Present Illness ED Provider: Brock Julio MD HPI narrative: Author / Clinician: Brock Julio MD Chief Complaint Severe left low back / hip pain with muscle spasm, onset last evening; history of fall three weeks ago. History of Present Illness The patient reports a forward fall approximately three weeks ago slipped on ice, fell forwards denied any significant injury but during the fall felt pull in the left low back. He did not land on his back but felt he ?pulled or pinched a nerve? in the left low back / hip region. He denies major injury at that time and was able to ambulate without immediate difficulty. On 11/05 he was evaluated by his PCP, had lumbar X-rays performed at [facility], and was told the imaging showed arthritis. Cyclobenzaprine and low-dose methylprednisolone (4 mg) were started for pain control. Last night, while rising from the toilet at home, he experienced sudden severe tightening in the same region, dropped to his knees, and nearly passed out due to excruciating pain. He states that certain movements (twisting, reaching) precipitate the spasms; straight leg raise on exam did not reproduce the pain. He has a history of five prior lumbar surgeries (L4-L5 procedures in the 1980s, 2011, and 2016). He is scheduled for urologic surgery (laser prostate procedure and bladder lesion fulguration) with Dr. Cee on 06/10. The patient reports strong intolerance to opioids (severe nausea, lightheadedness, vomiting) and wishes to avoid that medication class. Review of Systems - Constitutional: Lightheadedness noted during pain episode. - Musculoskeletal: Severe left low back / hip pain; muscle spasm; difficulty with certain movements. - Gastrointestinal: Denies history of stomach ulcer or chronic stomach issues. - Genitourinary: History of hematuria; enlarged prostate (per recent cystoscopy). Physical Exam: - Lumbar spine: Palpable spasm/tightness over left lumbosacral paraspinal muscles. Tender to palpation. - Motor: Able to lift left leg without pain during straight-leg raise in supine position. - Gait: Ambulation possible but limited by pain. Disposition Medications Reported home medications: cyclobenzaprine; methylprednisolone 4 mg; finasteride; tamsulosin (Flomax); rosuvastatin (Crestor); metformin; lisinopril; amlodipine; aspirin 81 mg. Allergies Opioids (morphine, oxycodone, codeine, etc.) ? severe nausea, lightheadedness, vomiting. Previously received scopolamine patch for nausea during opioid administration. Past Surgical History - Five lumbar spine surgeries (L4-L5: 1980s, 2012, decompression 2017). - Deviated septum repair. - Kidney operations: kinked ureter repair (1981), three kidney stone removals, additional kidney stone procedure. - Hernia repair. - Rotator cuff surgery. - Eye surgery. 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 Upcoming Procedures Laser prostate procedure and bladder lesion fulguration scheduled 06/[address] Cee. Related Data Home Medications ?Medication ?Instructions ?Recorded ?Confirmed amlodipine 5 mg tablet 1 tab PO DAILY 09/19/20 09/19/20 aspirin 81 mg chewable tablet 81 mg PO DAILY 09/19/20 09/19/20 lisinopril 10 mg tablet 1 tab PO DAILY 09/19/20 09/19/20 metformin 1,000 mg tablet 1 tab PO BEDTIME 09/19/20 09/19/20 cmicsnnn-ep-huinq 300 mcg-K 60 1 tab PO DAILY 09/19/20 09/19/20 mcg-lycop 600 mcg-lutein 300 mcg tablet (Centrum Silver Men) rosuvastatin 20 mg tablet 1 tab PO BEDTIME 09/19/20 09/19/20 Previous Rx's ?Medication ?Instructions ?Recorded cefuroxime axetil 250 mg tablet 250 mg PO BID #8 tabs 09/22/20 metronidazole 500 mg tablet 500 mg PO BID #8 tabs 09/22/20 (Flagyl) cephalexin 500 mg capsule 500 mg PO QID 10 days #40 caps 11/25/21 cyclobenzaprine 10 mg tablet 10 mg PO TID PRN muscle spasm #20 10/21/23 tabs finasteride 5 mg tablet 5 mg PO DAILY 90 days #90 tabs 03/20/25 tamsulosin 0.4 mg capsule (Flomax) 0.4 mg PO BEDTIME 30 days #30 tabs 03/20/25 sulfamethoxazole 800 1 tab PO BID 3 days #6 tabs 03/28/25 mg-trimethoprim 160 mg tablet (Bactrim DS) ibuprofen 800 mg tablet 800 mg PO Q8H PRN pain 4 days #16 05/10/25 tabs methocarbamol 750 mg tablet 750 mg PO Q8H PRN spasm #10 tabs 05/10/25 Allergies Allergy/AdvReac Type Severity Reaction Status Date / Time codeine AdvReac Intermediate Vomiting Verified 05/10/25 10:33 fentanyl (FENTANYL) AdvReac Intermediate Vomiting Verified 05/10/25 10:33 hydrocodone (Vicodin) AdvReac Intermediate Vomiting Verified 05/10/25 10:33 meperidine (Demerol) AdvReac Intermediate Vomiting Verified 05/10/25 10:33 Opioids-Meperidine and AdvReac Intermediate VOMITING Verified 05/10/25 10:33 Related (OPIOIDS-MEPERIDINE & RELATED) oxycodone AdvReac Intermediate Vomiting Verified 05/10/25 10:33 propoxyphene (From DARVON) AdvReac Intermediate NAUSEA & Verified 05/10/25 10:33 VOMITING tramadol (TRAMADOL) AdvReac Intermediate NAUSEA & Verified 05/10/25 10:33 VOMITING Darvon Allergy Intermediate Vomiting Uncoded 03/20/25 08:49 Darvocet-N 50 AdvReac Intermediate Vomiting Uncoded 03/20/25 08:49 PMFSH Past Medical History Medical History Cataract Vitreomacular adhesion of left eye Kidney stones Chronic back pain High blood pressure Diabetes Deviated septum Surgical History Hx of vitrectomy H/O rotator cuff surgery S/P hernia surgery Previous back surgery Social History Social History Household Members: None Housing: House Do you presently have visiting nurse or other home services: No Alcohol intake: never Patient Tobacco Use Status: Never used Tobacco Advance Directives: Yes Advance Directives Information Provided: Yes Advance Directives on File: No service: No Current occupational status: retired Physical Exam ED Exam Exam: Back exam shows scarring mid, midline lumbar region as well as large curved scar in the left flank presumably from renal surgery tender musculature with palpable pinpoint spasm and tenderness in the erector paraspinal muscles lumbosacral region Vital Signs: Vital Signs - 24 hr 05/10/25 10:31 05/10/25 13:31 05/10/25 14:49 Temperature 97.3 F 97.8 F 97.1 F Pulse Rate 96 88 90 Respiratory Rate 18 15 18 Blood Pressure 130/67 158/72 H 139/72 Pulse Oximetry 99 99 98 Oxygen Delivery Method Room Air Room Air Room Air 05/10/25 16:50 05/10/25 16:59 Temperature 97.1 F 97.1 F Pulse Rate 93 93 Respiratory Rate 19 19 Blood Pressure 141/68 H 141/68 H Pulse Oximetry 98 98 Oxygen Delivery Method Room Air Room Air BMI result Body Mass Index 20.9 Course Course Course Narrative: Rapid medical examination performed in triage by Yolande Roe PA-C: Patient is a 79 year old assigned male at presenting to the emergency department with left sided low back pain. Patient states that 2 weeks he fell forward and has been having left sided low back pain. Patient states that he saw his primary who got an x-ray and said it was arthritis and gave him a steroid dose back and muscle relaxer but it isn't helping and his pain is worsening. Detailed physical exam and review of systems are deferred to the english as a second language teacher. Patient placed back in the waiting room pending room availability. Medications Administered Discontinued Medications Generic Name Dose Route Start Last Admin Trade Name Jaxq PRN Reason Stop Dose Admin Bupivacaine HCl 30 ml 05/10/25 13:31 05/10/25 15:57 Bupivacaine Mpf 0.25 % 30 Ml Vial INFILTRATI 05/10/25 13:32 30 ml ONCE ONE Administration Diazepam 5 mg 05/10/25 13:30 05/10/25 16:02 Diazepam 10 Mg/2 Ml Cartridge IM 05/10/25 13:31 5 mg STAT STA Administration Ketorolac Tromethamine 30 mg 05/10/25 13:30 05/10/25 15:58 Ketorolac Tromethamine 30 Mg/Ml Vial IM 05/10/25 13:31 30 mg ONCE ONE Administration Lidocaine 1 patch 05/10/25 13:30 05/10/25 16:00 Lidocaine 4 % Patch Adh..Patch TRANSDERMA 05/10/25 13:31 1 patch ONCE ONE Administration Protocol Procedures Procedure Narrative Procedure Narrative: Nerve Block Procedure: Indication: Anesthesia/Analgesia for the affected area. Performed by: Brock Julio MD Approximate Time:?15 min A left-sided erector spinae plane nerve block was performed.? After explanation of the risks, benefits, and alternatives verbal consent was obtained ?A neurologic exam was conducted including motor and/or sensory testing of the lumbar wall sensation, There were no deficits. Extremity compartments were soft.? The area of injection was prepped with chlorhexidine. A 20 gauge, 1.5 in in length needle was used. Ultrasound guidance with real-time visualization of the needle tip was utilized throughout the procedure. In-plane approach was used to visualize needle tip. Images were saved.? Approximately 30 cc of 0.25% bupivacaine was injected near the nerve structure or plane. Local anesthetic gradually injected? in small aliquots of 3-5ml following negative aspiration. There was no complication? during the procedure. There were no signs of local anesthetic toxicity. There were no other complications. Patient tolerated the procedure. ? Following the procedure, the blocked extremity was protected or positioned to prevent injury.? Images were stored. CPT:? (NEISHA BEAR/DOCUMENT US; US GUIDANCE IS BUNDLED) Thoracic Plane (Serratus/Erector): 67073 Medical Decision Making Medical Decision Making MDM Narrative: Medical Decision Makin-year-old male with complicated lumbar surgical history and injuries in the past, kidney stones, with history above mostly suggestive of acute lumbar strain and/or muscle spasm. The character and nature of the pain in the examination does not suggest renal stones though this was considered. He has no neurologic complaints or deficits on exam to suggest acute [employer] compression There was no fever no IV drug use or other high-risk criteria to suggest spinal epidural abscess or [employer] infection. Multimodal analgesia was attempted with lidocaine patch antispasmodics NSAID patient is unable to take any opioids. Shared decision-making discussion with the patient he was agreeable to try a paraspinal erector spinae plane block bupivacaine after risks benefit discussion see procedure note Preliminary Favored Differential Diagnosis: Lumbar strain lumbar spasm less likely retroperitoneal process among additional considered etiologies Testing Interpreted Independently: ?See below for details Radiology or Lab testing Results Reviewed: ?See below for details Consults: ?See below for details Independent Historians/External Chart Reviews: ?See below for details Social Determinants of Health Impacting MDM/Planning: ?See below for details Discharge Plan Discharge Clinical Impression: Arthralgia, lumbar spine Patient Disposition: Home, Self-Care Instructions: Acute Low Back Pain (ED) Additional Instructions: As we discussed we feel your pain is likely musculoskeletal in origin possibly a strain or spasm of the lumbar muscles. This time we do not feel imaging was done but if your pain worsens severely or you develop high fevers inability to urinate or move your bowels or numbness tingling weakness in your legs or difficulty walking return immediately back to the emergency department. As we discussed we gave you anesthetic block of the muscular plane called a erector spinae plane block in the lumbar region on the left side with bupivacaine anesthetic. In the emergency department you were given here was in order Valium to decrease spasm he has well as ketorolac and anti-inflammatory medicine and lidocaine patches. Going forward we recommend: Ibuprofen 800 mg 3 times a day not to exceed 4 more days. Methocarbamol 750 mg 3 times a day as needed. Heating pad for 15 minutes at a time followed by at least 1 hour off you can alternate this with cold pack. Epsom salt baths twice per day. Massage if possible. Foam rolling the low back if possible. Prescriptions: New methocarbamol 750 mg tablet 750 mg PO Q8H PRN (Reason: spasm) Qty: 10 0RF ibuprofen 800 mg tablet 800 mg PO Q8H PRN (Reason: pain) 4 Days Qty: 16 0RF No Action sulfamethoxazole-trimethoprim [Bactrim DS] 800-160 mg tablet 1 tab PO BID 3 Days Qty: 6 0RF amlodipine 5 mg tablet 1 tab PO DAILY metformin 1,000 mg tablet 1 tab PO BEDTIME lisinopril 10 mg tablet 1 tab PO DAILY aspirin 81 mg Tablet,Chewable 81 mg PO DAILY rosuvastatin 20 mg tablet 1 tab PO BEDTIME Centrum Silver Men 300-600-300 mcg Tablet 1 tab PO DAILY cefuroxime axetil 250 mg tablet 250 mg PO BID Qty: 8 0RF metronidazole [Flagyl] 500 mg tablet 500 mg PO BID Qty: 8 0RF cephalexin 500 mg capsule 500 mg PO QID 10 Days Qty: 40 0RF cyclobenzaprine 10 mg tablet 10 mg PO TID PRN (Reason: muscle spasm) Qty: 20 0RF tamsulosin [Flomax] 0.4 mg capsule 0.4 mg PO BEDTIME 30 Days Qty: 30 3RF finasteride 5 mg tablet 5 mg PO DAILY 90 Days Qty: 90 1RF Interventions: ED Discharge Assessment Last Done: 05/10/25 16:59 Print Language: Korean
[2025-05-10 13:31] VITALS: BP 158/72; PULSE 88; RESP 15; TEMP 36.6; O2SAT 99
[2025-05-10 14:49] VITALS: BP 139/72; PULSE 90; RESP 18; TEMP 36.2; O2SAT 98
[2025-05-10] MEDS: BUPivacaine MPF 0.25 % 30 ML VIAL INFILTRATI (15:57)
[2025-05-10] MEDS: Lidocaine 4 % Patch ADH..PATCH 1 PATCH TRANSDERMA (16:00)
[2025-05-10] MEDS: diazePAM 10 MG/2 ML CARTRIDGE 5 MG IM (16:02)
[2025-05-10 16:50] VITALS: BP 141/68; PULSE 93; RESP 19; TEMP 36.2; O2SAT 98
[2025-05-10 16:59] VITALS: BP 141/68; PULSE 93; RESP 19; TEMP 36.2; O2SAT 98
--- OUTSIDE RECORDS SUMMARY | 2025-05-10 18:48 | XMS_ITS | Encounter Summary ---
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
--- OUTSIDE RECORDS SUMMARY | 2025-05-10 18:48 | XMS_ITS | Clinical Summary ---
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
== END 2025-05-10 18:23 | disposition home or self-care (01) ==
PROVIDERS: Emergency Provider Emergency Medicine; PCP Internal Medicine
DX: M54.50 Low back pain, unspecified (principal); E11.9 Type 2 diabetes mellitus without complications; I10 Essential (primary) hypertension; Z79.82 Long term (current) use of aspirin; Z79.84 Long term (current) use of oral hypoglycemic drugs; Z79.899 Other long term (current) drug therapy
CPT/HCPCS: 64466; 96372; 96374; 99283; 99284; J0665; J1885; J3360